=== PATIENT | male | born 1945 | race Caucasian/White ===

== ENCOUNTER 2017-03-13 12:40 | Inpatient (IN) | payer MEDICARE, OTHER ==
[~2017-03-13] VITALS: Ht 182.9 cm; Wt 147.7 kg
--- NOTE | ~2017-03-13 | PR ---
[place], [place] PROGRESS NOTE NAME: FRANCESCO BEY [facility] #: [id number] UNIT #: [id number] ROOM: 531 DOCTOR: INGA LAW DPM BIRTHDATE: [birth year] DOS: 03/15/2017 SUBJECTIVE: The patient was seen for followup of ulceration of the left heel, which apparently has been evident for 3-4 weeks. OBJECTIVE: Pedal pulses nonpalpable. Chronic venous insufficiency. Venous stasis, bilateral lower extremities. Capillary refill time decreased. Decreased epicritic sensations. Plantar posterior left heel reveals ulceration, approximately 3 cm in diameter with fibrous tissue. No deep sinus tract. No signs of abscess. No exposed bone noted. Results of the radiographs suggestive of osteomyelitis of the plantar posterior left heel. Patient's lower extremity arterial exam reveals severe multilevel disease inflow stenosis, superficial femoral, popliteal occlusion, poor reconstituted tibial flow. ASSESSMENT: Diabetic ulceration, left heel, probable osteomyelitis, severe peripheral vascular disease. PLAN: Evaluation and management discussed with the patient. He needs vascular intervention as soon as possible to allow for increased chances of wound healing and limb salvage discussed with the patient. He has an MRI pending on Friday to rule out osteomyelitis, but we will try and determine who his current vascular surgeon is and the patient may need transfer for vascular intervention to be able to heal the chronic wound. INGA LAW DPM CM:RONNI [id number] INGA LAW DPM 03/16/177 interface
--- NOTE | ~2017-03-13 | CON ---
[place], [place] REPORT OF CONSULTATION NAME: FRANCESCO BEY UNIT #: [id number] ROOM: 531 DOCTOR: VOLODYMYR SINGHSUNIL BIRTHDATE: [birth year] DOS: 03/14/2017 SUBJECTIVE: This patient is seen as consulted for evaluation and treatment of chronic left heel ulcer. The patient states it has only been there 3-4 weeks. He is diabetic. He has a history of chronic lower extremity swelling as well for many years. PAST MEDICAL HISTORY: Positive for AFib, BPH, chronic anemia, chronic renal insufficiency, congestive heart failure, dyslipidemia, gastroesophageal reflux disease, history of CVA, hypertension, history of DVT, hypothyroidism, severe protein malnutrition, type 2 diabetes with hyperglycemia and long-term use of insulin. ALLERGIES: PENICILLIN AND SIMVASTATIN. MEDICATIONS: Zaroxolyn, Prilosec, Humulin, Pravachol, gabapentin, vitamin D, Proscar, Colace, Cardizem, Pradaxa, Ultram, Flomax, Cordarone, Restoril. OBJECTIVE: Upon lower extremity physical examination, DP and PT pedal pulses are decreased. Chronic pigment changes noted bilaterally with dependent edema bilaterally. Negative Homans sign bilaterally at this time. CFT is 2 seconds to all digits. Sensation appears decreased in the feet bilaterally with no paresthesias. The plantar posterior portion of the left heel has an ulceration present measuring about 3 cm in diameter. There is slough and fibrous tissue noted throughout the wound. No bone is visible or palpable at this time. There is no purulent drainage or malodor. Minimal surrounding edema, no erythema or increased temperature, no signs of infection or abscess. Possible chronic osteomyelitis because the wound appears very chronic in nature. IMAGING: His x-ray was questionable for osteomyelitis of the plantar posterior left heel. ASSESSMENT: Diabetes mellitus, chronic left heel ulcer, possible osteomyelitis. PLAN: Consult is performed. Dressing was applied to the wound. I have ordered arterial vascular studies to evaluate for underlying PAD. Order MRI for further evaluation for possible osteomyelitis of the heel. If positive, consult Infectious Disease for IV antibiotics, but we will see what the MRI shows first. Reevaluate tomorrow here in the hospital. Thank you for the opportunity to take part in the care of this patient. [place], [place] REPORT OF CONSULTATION NAME: FRANCESCO BEY UNIT #: [id number] ROOM: 531 DOCTOR: SUNIL HELM DPM BIRTHDATE: [birth year] SUNIL HELM DPM CM:CONSTR:REPORT OF CONSULTATION 1157 03/15/17 0233 interface
[~2017-03-13 12:40] MED LIST: AMIODARONE200 MG PO; ASPIRIN81 M1 PO; ASPIRIN81 MG PO; AVODART0.5 MG PO; BYETTA10 MCG/0.0 IJ; BYETTA10 MCG/0.0 SC; BYETTA5MCG SC; CARDIZEM90 MG PO; CENTRUM SILVER1 CTB PO; CENTRUM1 TA1 PO; COUMADIN5 M2 PO; COUMADIN7.5 M1 PO; CYCLOBENZAPRINE5 MG PO; DEMADEX20 M1 PO; DILTIAZEM60 MG PO; FINASTERIDE5 MG PO; FLEXERIL10 MG PO; FLOMAX0.4 MG PO; GLUCAGEN1 MG IJ; HUMALOG 751 UNIT/0.0 SC; HYDROCODONE BIT1 T11 PO; JANUMET 1000 MG1 TAB PO; JANUVIA25 MG PO; Janumet 1000 MG1 TAB PO; KLOR-CON M2020 ME1 PO; KLOR-CON M2020 MEQ PO; LASIX40 MG PO; LEVOXYL50 MCG PO; LIPITOR40 MG PO; LISINOPRIL20 MG PO; LISINOPRIL40 MG PO; LOVASTATIN40 MG PO; LOVENOX100 MG/1 M SC; LOVENOX100 MG/ML SC; LOVENOX120 MG/0.8 SC; MAG-OX 400400 MG PO; METFORMIN500 MG PO; METOLAZONE5 MG PO; METOPROLOL SR50 MG PO; METOPROLOL50 MG PO; MIRTAZAPINE15 MG PO; MIRTAZAPINE7.5 MG PO; NAPROSYN500 MG PO; NEXIUM40 MG PO; NITROFURANTOIN100 M3 PO; NOVOLIN R100 U/ML SC; NOVOLOG 70/30 M10 ML SC; NOVOLOG FLEX100 U/ML SC; NOVOLOG1 UNIT/0.0; Nizoral 2%15 GM T; PACERONE200 MG PO; PERCOCET 325 MG1 TA3 PO; PRAD75 PO; PRADAXA150 MG PO; PRAVACHOL40 MG PO; PRILOSEC20 M1 PO; PRINIVIL40 MG PO; PROSCAR5 M1 PO; REGLAN10 M1 PO; REMERON PO; SPIRONOLACTONE1 TA1 PO; SPIRONOLACTONE1 TAB PO; SYNTHROID25 MCG PO; TORSEMIDE100 MG PO; UBIQUINOL; UBIQUINOL PO; UBIQUINOL100 MG PO; UBIQUINOL50 MG PO; VITAMIN D32000 UNI1 PO; WELCHOL3.75 GM/Pa PO; ZOFRAN4 MG PO; [UNRECOGNIZED DRUG - OTHER] SC
[2017-03-13 12:50] VITALS: BP 141/96
[2017-03-13 13:45] LABS: BASO % 0.4 % (0.0-1.0); EOS # 0.2 10*3/uL (0.0-0.4); EOS % 3.2 % (1.0-4.0); HEMATOCRIT 30.7 % (42.0-52.0); HEMOGLOBIN 9.6 g/dl (14.0-18.0); LYMPH # 0.8 10*3/uL (1.3-4.4); LYMPH % 10.6 % (27.0-41.0); MEAN CELL VOLUME 91.1 fl (80.0-94.0); MEAN CORPUSCULAR HGB 28.5 pg (27.0-31.0); MEAN CORPUSCULAR HGB CONC 31.3 g/dl (33.0-37.0); MEAN PLATELET VOLUME 9.9 fl (9.6-12.3); MONO # 0.7 10*3/uL (0.1-1.0); MONO % 9.7 % (3.0-9.0); NEUT # 5.4 10*3/uL (2.3-7.9); NEUT % 75.7 % (47.0-73.0); PLATELET COUNT AUTOMATED 214 10*3/uL (130-400); RED BLOOD COUNT 3.37 10*6/uL (4.50-5.90); RED CELL DISTRI WIDTH 15.4 % (0-14.5); WHITE BLOOD COUNT 7.1 10*3/uL (4.8-10.8)
[2017-03-13 13:56] LABS: BILIRUBIN NEGATIVE (NEGATIVE); BLOOD NEGATIVE (NEGATIVE); CLARITY CLEAR (CLEAR); COLOR YELLOW (YELLOW); GLUCOSE NEGATIVE (NEGATIVE); KETONE NEGATIVE (NEGATIVE); LEUKO ESTERASE TRACE (NEGATIVE); NITRITE NEGATIVE (NEGATIVE); PH 5.5 (5.0-9.0); PROTEIN NEGATIVE (NEGATIVE); UROBILINOGEN 0.2 E.U./dl (0.2-1.0)
[2017-03-13 14:05] LABS: BACTERIA TRACE; RBC 0-2 rbc/hpf (0-2); URINE REFLEX COMMENT YES (NO)
[2017-03-13 14:05] LABS: BUN 43 mg/dl (7-24); CARBON DIOXIDE 30 mmol/L (21-32); CHLORIDE 105 mmol/L (98-107); EST GLOM FILT AFRICAN AMERICAN 34 ml/min; GLUCOSE 67 mg/dL (65-99); POTASSIUM 4.2 mmol/L (3.5-5.1); SODIUM 144 mmol/L (136-145)
[2017-03-13 14:17] LABS: TROPONIN I < 0.015 ng/ml (<0.045)
[2017-03-13] MEDS ORDERED: MAGOX 400400 MG PO (15:17)
[2017-03-13] MEDS ORDERED: BACTRIM DS 8001 TA1 PO (15:19)
[2017-03-13] MEDS ORDERED: TRAMADOL HCL50 MG PO (15:20)
[2017-03-13] MEDS ORDERED: COLACE100 MG PO (15:22)
[2017-03-13] MEDS ORDERED: NEURONTIN300 MG PO (15:26)
[2017-03-13] MEDS ORDERED: LASIX20 MG PO (15:28)
[2017-03-13] MEDS ORDERED: COQ-10100 MG PO (15:29)
[2017-03-13 15:54] VITALS: BP 138/88
[2017-03-13 16:35] VITALS: BP 138/88
[2017-03-13] MEDS ORDERED: SANTYL250 U/GM T (17:02)
[2017-03-13 20:00] VITALS: BP 150/70
[2017-03-14] VITALS: BP 164/60
[2017-03-14 06:58] LABS: BASO % 0.3 % (0.0-1.0); EOS # 0.2 10*3/uL (0.0-0.4); EOS % 3.2 % (1.0-4.0); HEMATOCRIT 31.6 % (42.0-52.0); LYMPH # 0.6 10*3/uL (1.3-4.4); LYMPH % 9.5 % (27.0-41.0); MEAN CELL VOLUME 88.8 fl (80.0-94.0); MEAN CORPUSCULAR HGB 28.1 pg (27.0-31.0); MEAN CORPUSCULAR HGB CONC 31.6 g/dl (33.0-37.0); MEAN PLATELET VOLUME 9.8 fl (9.6-12.3); MONO # 0.6 10*3/uL (0.1-1.0); MONO % 10.6 % (3.0-9.0); NEUT # 4.5 10*3/uL (2.3-7.9); NEUT % 76.1 % (47.0-73.0); PLATELET COUNT AUTOMATED 197 10*3/uL (130-400); RED BLOOD COUNT 3.56 10*6/uL (4.50-5.90); RED CELL DISTRI WIDTH 15.1 % (0-14.5)
[2017-03-14 07:31] LABS: INTERNATIONAL NORM RATIO 1.2 (2.0-3.5); PROTHROMBIN TIME 13.2 SECONDS (9.0-12.4)
[2017-03-14 07:32] LABS: MAGNESIUM 2.2 mg/dL (1.5-2.1)
[2017-03-14 07:43] LABS: FREE T4 1.3 ng/dl (0.76-1.46); THYROID STIM HORMONE (HS) 1.27 uIU/ml (0.358-4.75)
[2017-03-14 08:00] VITALS: BP 174/80
[2017-03-14 09:35] LABS: VITAMIN D, 25-HYDROXY 57.9 ng/mL (30-100)
[2017-03-14 09:39] LABS: FOLIC ACID > 24.00 ng/mL (>5.38)
[2017-03-14 12:00] VITALS: BP 168/52
[2017-03-14 16:00] VITALS: BP 166/56
[2017-03-14 20:00] VITALS: BP 150/56
[2017-03-15] VITALS: BP 160/56
[2017-03-15 07:14] LABS: ALBUMIN 2.7 gm/dl (3.1-4.5); C-REACTIVE PROTEIN 6.42 MG/DL (0-0.3); MAGNESIUM 2.3 mg/dL (1.5-2.1); PHOSPHOROUS 2.4 mg/dL (2.5-4.9); POTASSIUM 4.3 mmol/L (3.5-5.1)
[2017-03-15 08:00] VITALS: BP 168/54
[2017-03-15 12:00] VITALS: BP 144/48
== END 2017-03-15 13:55 | disposition short-term general hospital (02) | DRG 637 ==
LOC: ED 12:40 → 5E 15:07 → EDHOLD 15:07 → 5E 15:24
PROVIDERS: Emergency Medicine; Internal Medicine Hospice and Palliative Medicine; Podiatrist
DX: E11.69 Type 2 diabetes mellitus with other specified complication (principal); E43 Unspecified severe protein-calorie malnutrition; M86.9 Osteomyelitis, unspecified; N17.0 Acute kidney failure with tubular necrosis; G93.40 Encephalopathy, unspecified; I74.8 Embolism and thrombosis of other arteries; E11.622 Type 2 diabetes mellitus with other skin ulcer; I13.0 Hypertensive heart and chronic kidney disease with heart failure and stage 1 through stage 4 chronic kidney disease, or unspecified chronic kidney disease; I50.42 Chronic combined systolic (congestive) and diastolic (congestive) heart failure; I48.0 Paroxysmal atrial fibrillation; E11.22 Type 2 diabetes mellitus with diabetic chronic kidney disease; Z68.41 Body mass index [BMI] 40.0-44.9, adult; E86.0 Dehydration; E11.51 Type 2 diabetes mellitus with diabetic peripheral angiopathy without gangrene; N18.3 Chronic kidney disease, stage 3 (moderate); N40.1 Benign prostatic hyperplasia with lower urinary tract symptoms; E78.5 Hyperlipidemia, unspecified; D53.9 Nutritional anemia, unspecified; B96.5 Pseudomonas (aeruginosa) (mallei) (pseudomallei) as the cause of diseases classified elsewhere; E11.65 Type 2 diabetes mellitus with hyperglycemia; K21.9 Gastro-esophageal reflux disease without esophagitis; E03.9 Hypothyroidism, unspecified; Z86.73 Personal history of transient ischemic attack (TIA), and cerebral infarction without residual deficits; Z86.718 Personal history of other venous thrombosis and embolism; Z82.3 Family history of stroke; Z82.0 Family history of epilepsy and other diseases of the nervous system; Z88.0 Allergy status to penicillin; Z88.8 Allergy status to other drugs, medicaments and biological substances; Z79.82 Long term (current) use of aspirin; Z79.4 Long term (current) use of insulin; Z79.899 Other long term (current) drug therapy

== ENCOUNTER → 2017-04-01 | Outpatient (CLI) | payer MEDICARE, OTHER ==
[~2017-04-01] MED LIST changes: +BACTRIM DS 8001 TA1 PO; +COLACE100 MG PO; +COQ-10100 MG PO; +LASIX20 MG PO; +MAGOX 400400 MG PO; +NEURONTIN300 MG PO; +SANTYL250 U/GM T; +TRAMADOL HCL50 MG PO
== END | disposition home or self-care (01) ==
LOC: MRI 03-25 08:00
DX: E11.621 Type 2 diabetes mellitus with foot ulcer (principal); M86.8X7 Other osteomyelitis, ankle and foot

== ENCOUNTER 2017-06-11 19:14 | Emergency (ER) | payer MEDICARE, OTHER ==
[~2017-06-11] VITALS: Ht 187.9 cm; Wt 154.2 kg
== END 2017-06-11 22:08 | disposition home or self-care (01) ==
LOC: ED 19:14
DX: M25.512 Pain in left shoulder (principal); M54.9 Dorsalgia, unspecified; Z88.0 Allergy status to penicillin; Z88.8 Allergy status to other drugs, medicaments and biological substances; Z79.899 Other long term (current) drug therapy; Z79.82 Long term (current) use of aspirin; W05.0XXA Fall from non-moving wheelchair, initial encounter; Y93.89 Activity, other specified; Y92.129 Unspecified place in nursing home as the place of occurrence of the external cause; Y99.8 Other external cause status

== ENCOUNTER 2017-07-02 17:07 | Inpatient (IN) | payer MEDICARE, OTHER ==
[~2017-07-02] VITALS: Ht 182.8 cm; Wt 142.7 kg
--- NOTE | ~2017-07-02 | PR ---
[place], [place] PROGRESS NOTE NAME: [facility]CO BEY [facility] #: [id number] UNIT #: [id number] ROOM: 409 DOCTOR: VOLODYMYR SINGHSUNIL BIRTHDATE: [birth year] DOS: 07/04/2017 SUBJECTIVE: This patient is seen for followup of chronic left heel ulcer. The patient's is in the room as well as the resident from Infectious Disease. According to the , the patient has had this wound at least for 4-5 months. She states it has gotten slowly better. Apparently, according to his , he did see Dr. Romero in the past and as recent as a month ago. He had an arteriogram done at [place] and Dr. Romero did not see any signs of any occlusions at that time. OBJECTIVE: EXTREMITIES: DP and PT pedal pulses are diminished. There is chronic lower extremity edema noted with pigment changes. Negative Homans sign is seen. Absent hair growth. Skin temperature is cool at the toes. The plantar posterior left heel wound does have some macerated and fibrous tissue with no surrounding fluctuance, erythema or increased temperature. There is some mild malodor noted at the wound. No bone is visible or palpable at this time. It is somewhat close to periosteum. No signs of abscess at this time. DIAGNOSTIC STUDIES: His x-ray showed probable osteomyelitis of the heel. His venous Dopplers were negative for DVT. His arterial Doppler showed mild right lower extremity inflow disease with severe left lower extremity disease. There is total occlusion of the distal right SFA without reconstruction of the right popliteal artery, total occlusion of the left SFA without reconstitution of the left popliteal artery, minimal flow is identified within the right anterior tibial and posterior tibial arteries as well as the left anterior tibial arteries. ASSESSMENT: Chronic left heel ulcer, history of osteomyelitis with most likely chronic osteomyelitis of the left heel, peripheral arterial disease. PLAN: Evaluation and management. I discussed with the patient's as well as the resident for Infectious Disease that at this time I would recommend conservative management. I would recommend wet to dry dressings for short period of time to clean the wound up and then possibly restart the wound VAC. Infectious Disease is going to put him on IV antibiotics. He has already had a PICC line placed. They will manage his IV antibiotics. We will offload the heel with heel protector while in bed and he has a Cam walker when he is out of bed. I would not recommend any surgical intervention at this time. We will consult Dr. Romero for evaluation just for followup since apparently he has seen him before and he is okay for discharge from our standpoint [facility] with [facility], which would include wet to dry dressing changes every day and he would have IV antibiotics managed by Infectious Disease. The would like to follow him up at the prison and not brought into the office because it is very taxing on the patient. I will let her Outreach Department know for our practice to follow him up at [facility] next week for reevaluation of the wound. [place], [place] PROGRESS NOTE NAME: FRANCESCO BEY UNIT #: [id number] ROOM: [facility] DOCTOR: SUNIL HELM DPM BIRTHDATE: [birth year] SUNIL HELM DPM CM:PNTRANS [id number] SUNIL HELM DPM 07/07/17 0717 interface
--- NOTE | ~2017-07-02 | CON ---
[place], [place] REPORT OF CONSULTATION NAME: [facility]CO [facility]Y [facility] [id number] UNIT #: [id number] ROOM: 409 DO[facility]: [facility] BIRTH[facility]: [birth year] DOS: HISTORY OF PRESENT ILLNESS: The patient apparently allergic to PENICILLIN and SIMVASTATIN and the patient markedly obese individual came in with infection, ID is following, need antibiotic for 2 weeks. The patient has wound, chronic on the left heel, significant and deep and chronic changes in both lower extremities and the peripheral artery study shows ____ disease on the left side than the right and total occlusion of the superficial femoral on both sides and pulse posterior tibial and dorsalis option on the left side, very feeble posterior tibial on the right side. The patient is afebrile. Blood pressure 146/41 and the pulse ox is 94. Diminished breath sounds on both sides. Heart, S1, S2 regular, obese. Abdomen is pendulous and marked peripheral edema. Hemoglobin 9.9 and electrolytes are unremarkable and creatinine is elevated at 1.49 and GFR is 46. He appears to have a chronic kidney disease, probably stage 4. Chest x-ray PICC line is in place. No acute changes noted. No focal neurological deficit noted. The patient is from [facility] and the patient has a chronic atrial fibrillation, benign prostatic hypertrophy and chronic anemia, chronic renal insufficiency, history of congestive heart failure and history of peripheral edema, chronic, history of CVA, history of deep vein thrombosis, hypothyroidism and protein-calorie malnutrition, type diabetes mellitus with hypoglycemia. The patient has left L4 surgery in the past, rhinoplasty and tonsillectomy. SOCIAL HISTORY: No smoking, apparently has exposure to smoke from the others. FAMILY HISTORY: History of CVA in the family. ALLERGIES: THE PATIENT IS ALLERGIC IS PENICILLIN AND SIMVASTATIN. PHYSICAL EXAMINATION: Vital signs are stable. Peripheral edema noted, obese individual, and posterior tibial is feeble on the right side, unable to feel about the dorsalis pedis or posterior tibial, could not feel on the left side, big heel wound noted. Chronic changes on the both lower extremities and severe peripheral arterial disease. The patient is for wound VAC. I talked to the patient and the patient to undergo aortobifemoral angiogram with distal runoff and possible revascularization, left side, both inlet and outlet vessels and then subsequently to undergo revascularization on the right side also to reduce the risk of further problem with the skin and the wounds on the right side eventually. I will discuss the case with Dr. John Dover and I will make the arrangements appropriately at [place] for further management for revascularization. We will try to do endovascular. [place], [place] REPORT OF CONSULTATION NAME: FRANCESCO BEY UNIT #: [id number] ROOM: [facility] DOCTOR: PRAFUL [facility] BIRTHDATE: [birth year] KWAKU BASILIO MD CM:CONSTR:REPORT OF CONSULTATION 1847 07/05/17 1352 estrellita HOLT DO
--- NOTE | ~2017-07-02 | CON ---
[place], [place] REPORT OF CONSULTATION NAME: FRANCESCO BEY [facility] #: [id number] UNIT #: [id number] ROOM: 409 DOCTOR: THANH SINGHINGA Harvey BIRTHDATE: [birth year] DOS: 07/03/2017 SUBJECTIVE: The patient presents as a 71-year-old male who has been treated by Dr. Hercules and Dr. Garcia at the office on outpatient basis. The patient has had a chronic ulceration to the left heel. It has been treated with a wound VAC and the patient was at [facility]. The patient was seen at the office yesterday where the heel was debrided and apparently, the patient was dizzy and had a fall in the restroom and subsequently admitted. PAST MEDICAL HISTORY: Chronic atrial fibrillation, benign prostatic hyperplasia, chronic anemia, chronic renal insufficiency, CHF, dyslipidemia, GERD, CVA, hypertension, history of DVT, hypothyroid, severe protein-calorie malnutrition, type 2 diabetes with hyperglycemia. PAST SURGICAL HISTORY: Permanent, left elbow surgery; rhinoplasty; tonsillectomy. SOCIAL HISTORY: History of secondhand smoke exposure. Social drinker. Denies illicit drug use or current tobacco use. FAMILY HISTORY: Father of a cerebral infarction. Mother of Alzheimer's disease. ALLERGIES: PENICILLIN AND SIMVASTATIN. PHYSICAL EXAMINATION: Lower extremity examination: Pedal pulses diminished. There is edema, bilateral lower extremity; venous insufficiency. There is an ulceration to the plantar aspect of the left heel, which is full thickness through subcutaneous tissue level. There is scant amount of serous drainage and odor to the wound noted. The ulceration is approximately 4.5 cm in diameter. ASSESSMENT: Diabetic ulceration, plantar left heel, PVD ____ and ordered wound VAC to be applied after the patient is seen by Dr. Ha from Infectious Disease. The wound VAC will be continuous at 125 mmHg, change every 3 days. I spoke with Dr. Ha regarding the case after consulting with Dr. Garcia, the patient's previous treatment history. Wet to dry will be applied until the patient is seen by Infectious Disease and ordered for the culture. Additionally, radiographs 3 views of the left foot will be taken to ascertain if any erosion of the heel noted, also right foot arterial venous Dopplers bilateral. We will discuss the case with Dr. Chang and will follow the patient tomorrow. [place], [place] REPORT OF CONSULTATION NAME: FRANCESCO BEY UNIT #: [id number] ROOM: 409 DOCTOR: INGA LAW DPM BIRTHDATE: [birth year] INGA LAW DPM CM:CONSTR:REPORT OF CONSULTATION 1220 07/04/17 1307 interface
[2017-07-02 17:07] VITALS: BP 177/68
[2017-07-02 17:54] LABS: BASO % 0.3 % (0.0-1.0); EOS % 0.3 % (1.0-4.0); HEMATOCRIT 35.8 % (42.0-52.0); LYMPH # 0.4 10*3/uL (1.3-4.4); LYMPH % 5.7 % (27.0-41.0); MEAN CELL VOLUME 89.1 fl (80.0-94.0); MEAN CORPUSCULAR HGB 27.4 pg (27.0-31.0); MEAN CORPUSCULAR HGB CONC 30.7 g/dl (33.0-37.0); MEAN PLATELET VOLUME 10.1 fl (9.6-12.3); MONO # 0.8 10*3/uL (0.1-1.0); NEUT # 5.7 10*3/uL (2.3-7.9); PLATELET COUNT AUTOMATED 227 10*3/uL (130-400); RED BLOOD COUNT 4.02 10*6/uL (4.50-5.90); RED CELL DISTRI WIDTH 15.1 % (0-14.5)
[2017-07-02 18:11] LABS: ALBUMIN 2.9 gm/dl (3.1-4.5); ALKALINE PHOSPHATASE 96 U/L (45-117); BUN 33 mg/dl (7-24); CHLORIDE 101 mmol/L (98-107); CREATININE 2.01 mg/dL (0.70-1.30); MAGNESIUM 2.2 mg/dL (1.5-2.1); POTASSIUM 4.5 mmol/L (3.5-5.1); SGOT/AST 18 IU/L (3-35); SGPT/ALT 13 U/L (12-78); SODIUM 139 mmol/L (136-145); TOTAL PROTEIN 7.6 gm/dL (6.4-8.2)
[2017-07-02 18:12] LABS: TROPONIN I < 0.015 ng/ml (<0.045)
[2017-07-02 18:33] LABS: ACT PARTIAL THROMBO TIME 32.5 SECONDS (20.8-31.5); INTERNATIONAL NORM RATIO 1.3 (2.0-3.5)
[2017-07-02 18:44] LABS: BILIRUBIN NEGATIVE (NEGATIVE); BLOOD 2+ (NEGATIVE); CLARITY CLOUDY (CLEAR); COLOR YELLOW (YELLOW); GLUCOSE NEGATIVE (NEGATIVE); KETONE NEGATIVE (NEGATIVE); LEUKO ESTERASE 3+ (NEGATIVE); NITRITE POSITIVE (NEGATIVE); PH 5.5 (5.0-9.0); UROBILINOGEN 0.2 E.U./dl (0.2-1.0)
[2017-07-02 18:50] LABS: BACTERIA 1+; RBC 16-20 rbc/hpf (0-2); WBC TNTC wbc/hpf (0-5)
[2017-07-02 18:55] LABS: VENOUS BLOOD GAS O2 SAT 51.5 % (40-85); VENOUS PH 7.372 (7.32-7.43)
[2017-07-02 19:18] VITALS: BP 180/92
[2017-07-02 20:44] VITALS: BP 148/58
[2017-07-02 21:20] VITALS: BP 136/72
--- NOTE | 2017-07-02 21:20 | NUR ---
[facility] 71, admitted to , under the services of ROXY Peacock DO with a diagnosis of UTI AND METABOLIC ENCEPHALOPATHY. Chief complaint is WEAKNESS, CONFUSION, SOB. Patient arrived via ambulatory from ER. Monitor applied. Initial assessment completed. Vital signs taken and recorded. ROXY PEACOCK DO notified of admission to the unit. Orders received. See assessment for past medical history, medications and allergies. Patient and/or family oriented to unit. [facility]. Clothing/patient valuable form completed. SHAKIR MCLEAN
[2017-07-02] MEDS ORDERED: CYMBALTA30 MG PO (21:22)
[2017-07-02] MEDS ORDERED: ZOSTRIX HP56.6 GM T (21:24)
[2017-07-02] MEDS ORDERED: MILK OF MA400 MG/5 M PO (21:40)
[2017-07-02] MEDS ORDERED: TOPCARE LAXATIVE5 MG PO (21:41)
--- NOTE | 2017-07-02 21:46 | NUR ---
MED REC UP TO DATE WITH PT MED LIST FROM [facility]
--- NOTE | 2017-07-02 22:04 | NUR ---
SPOKE WITH ALVERTO LANGFORD, PATIENTS SISTER AT THIS TIME. SHE WAS WITH PATIENT AT ESTIMATOR AND DRAFTER OFFICE. PER EDGARD SHE IS DOES NOT WANT THE DRESSING TO PATIENTS LEFT FOOT CHANGED OR MESSED WITH UNTIL WE SPEAK WITH SOMEONE AT DR. LAW'S OFFICE THEY HAVE BEEN TREATING THIS PATIETNS ULCERS FOR A LONG TIME NOW AND SHE IS NOT SURE WHAT TREATMENT THAT THEY WOULD WANT, ALSO STATES THAT PATIENT EVEN HAD A WOULD VAC AT [facility].
--- NOTE | 2017-07-02 22:27 | NUR ---
SPOKE TO DR. HURLEY IN REGARDS TO PT. SISTER REQUESTING CONSULT FOR LEFT FOOT WOUND. ALSO INFORMED DR. HURLEY THAT THE [facility] IS UP TO DATE.
[2017-07-03] VITALS: BP 145/60
[2017-07-03 03:11] LABS: BASO % 0.2 % (0.0-1.0); EOS % 0.4 % (1.0-4.0); HEMATOCRIT 33.7 % (42.0-52.0); HEMOGLOBIN 10.5 g/dl (14.0-18.0); LYMPH # 0.5 10*3/uL (1.3-4.4); LYMPH % 10.8 % (27.0-41.0); MEAN CELL VOLUME 87.8 fl (80.0-94.0); MEAN CORPUSCULAR HGB 27.3 pg (27.0-31.0); MEAN CORPUSCULAR HGB CONC 31.2 g/dl (33.0-37.0); MEAN PLATELET VOLUME 9.9 fl (9.6-12.3); MONO # 0.6 10*3/uL (0.1-1.0); NEUT # 3.7 10*3/uL (2.3-7.9); NEUT % 74.8 % (47.0-73.0); PLATELET COUNT AUTOMATED 210 10*3/uL (130-400); RED BLOOD COUNT 3.84 10*6/uL (4.50-5.90); RED CELL DISTRI WIDTH 15.4 % (0-14.5); WHITE BLOOD COUNT 4.9 10*3/uL (4.8-10.8)
[2017-07-03 03:27] LABS: ALBUMIN 2.6 gm/dl (3.1-4.5); CREATININE 1.84 mg/dL (0.70-1.30); MAGNESIUM 2.2 mg/dL (1.5-2.1); PHOSPHOROUS 2.9 mg/dL (2.5-4.9)
--- NOTE | 2017-07-03 05:30 | NUR ---
NO WOUND CARE ORDERS OBTAINED ON ADMISSION DUE TO FAMILY REQUEST THAT WE DO NOT UNDRESS THE WOUND BUT INSTEAD CONSULT PODIETRY. OVERNIGHT PATIENT URINATED A LARGE VOLUME IN BED AND BOTH DRESSINGS BECAME SATURATED. DR HURLEY WAS CALLED TO NOTIFY AND REQUEST AUTH TO APPLY A DRY GAUZE DRESSING UNTIL PT COULD BE SEEN BY PODIETRY. WOUND WAS MEASURED AND PHOTOGRAPHED. AUTHORIZATION TO PHOTOGRAPH OBTAINED BY PATIENT. A DRY GAUZE DRESSING WAS APPLIED. UNFORTUNATELY THE PHOTO DID NOT SAVE. IDENTIFICATION OFFICER WAS INFORMED OF THIS.
[2017-07-03 08:00] VITALS: BP 136/84; BP 98/52
--- NOTE | 2017-07-03 08:08 | NUR ---
'S OFFICE CALLED AT THIS TIME REGARDING CONSULT. AWAITING RETURN PHONE CALL.
--- NOTE | 2017-07-03 09:28 | NUR ---
IN TO SEE PATIENT.
--- NOTE | 2017-07-03 09:29 | NUR ---
PATIENT BLADDER SCANNED AT THIS TIME PER . GREATEST AMOUNT OF URINE RETAINED WAS 111ML. PATIENT WAS INCONTINENT FOR LARGE AMOUNT OF URINE PRIOR TO BLADDER SCAN. WILL CONTINUE TO MONITOR. PATIENT REMAINS CONFUSED. CALL LIGHT WITHIN REACH. BED ALARM MAINTAINED FOR SAFETY.
[2017-07-03 12:00] VITALS: BP 151/74
--- NOTE | 2017-07-03 12:00 | NUR ---
IN TO SEE PATIENT REGARDING CONSULT. NEW ORDERS TO BE ENTERED PER . CHEMICAL EQUIPMENT REPAIRER MARIE NOTIFIED AT THIS TIME REGARDING WOUND VAC TO BE APPLIED. CRYSTAL FROM WOUND CARE ON FLOOR AND IN TO ASSESS THE PATIENT'S WOUND AT THIS TIME.
--- NOTE | 2017-07-03 12:26 | NUR ---
'S OFFICE CALLED AT THIS TIME REGARDING CONSULT.
--- NOTE | 2017-07-03 12:29 | NUR ---
WOUND CULTURE OBTAINED FROM LEFT HEEL PER ORDER AND SENT TO LAB. WET TO DRY DRESSING APPLIED BY TEQUILA MELENDEZ PER ORDER.
--- NOTE | 2017-07-03 13:31 | NUR ---
PATIENT OFF FLOOR VIA CART FOR SCHEDULED TESTS.
--- NOTE | 2017-07-03 14:29 | NUR ---
PATIENT RETURNED TO FLOOR AT THIS TIME.
--- NOTE | 2017-07-03 15:30 | NUR ---
FRANCESCO BEY [id number] Please refer to the physician's history and physical for past medical history, comorbid conditions, and allergies. Diagnosis: UTI METABOLIC ENCEPHALOPATHY Marcus Score: 12,HIGH RISK WOUND DESCRIPTIONS: Location of the wound: left heel Thickness: Full Size: 4.5cm x 3.5cm x 0.8cm Tunneling: none Undermining: none Sinus Tract: none Presence of Exudate: serosanguineous Amount: Moderate Color: Yellow, red, Odor: Foul Periwound Skin Appearance: Erythema Wound edges: approximated Pain (associated with wound): none at time of assessment How does patient state this happened? pt unable to state how this happened. Dr. Dover stated this patient was folowing with his office and has had wound vac placed at [place]. He suggested that we order the vac here after ID sees the patient and culture the wound. He order other testing as well. Surface the patient is resting on: Isoflex SKIN PREVENTION RECOMMENDATION: 1. Pressure redistribution support surface as appropriate 2. Elevate heels 3. Remove boots/TEDS every shift and reapply 4. Head of bed 30 degrees as tolerated 5. Assess nutrition and hydration 6. Manage moisture 7. Avoid the use of containment devices while in bed 8. Use absorptive products on surfaces limit layers of linens on bed 9. Turn and reposition every 1-2 hours in bed and every 1 hour in chair as tolerated 10. Weight shifts every 15 minutes while up in chair 11. Offloading with pillows or device to keep heels elevated off bed 12. Monitor skin at least every shift 13. Inspect under medical devices twice a day WOUND TREATMENT RECOMMENDATIONS: Consult ID. Consult podiatry. Consult Dr. Laureano for possible HBO if patient is a candiate.
--- NOTE | 2017-07-03 15:46 | NUR ---
WAITING FOR TO ASSESS PATIENT'S HEEL BEFORE WOUND VAC IS APPLIED PER ORDER.
[2017-07-03 16:00] VITALS: BP 154/60
--- NOTE | 2017-07-03 16:22 | NUR ---
IN TO SEE PATIENT AT THIS TIME.
--- NOTE | 2017-07-03 16:28 | NUR ---
SPOKE WITH REGARDING CONSULT AND IS NOT RECOMMENDING WOUND VAC TO BE APPLIED AT THIS TIME. WET TO DRY DRESSING WILL BE APPLIED PER ORDER.
--- NOTE | 2017-07-03 16:52 | NUR ---
DRY DRESSING APPLIED PER ORDER. LEFT HEEL ELEVATED AT THIS TIME. WILL CONTINUE TO MONITOR.
[2017-07-03 20:00] VITALS: BP 154/71
--- NOTE | 2017-07-03 20:00 | NUR ---
AWAKE & ALERT LYING IN BED. SKIN WARM & DRY. 02 INTACT AT 2LPM VIA NASAL CANNULA. LUNGS CLEAR WITH NO COUGH NOTED. LOWER EXTREMITY EDEMA NOTED; LEFT HEEL ELEVATED. PT. VOICES NO C/O AT THIS TIME. CALL LIGHT WITHIN REACH.
--- NOTE | 2017-07-03 22:00 | NUR ---
BLOOD SUGAR 183; 2 UNITS OF COVERAGE GIVEN.
[2017-07-04] VITALS: BP 155/48
[2017-07-04 06:10] LABS: BASO % 0.3 % (0.0-1.0); EOS # 0.1 10*3/uL (0.0-0.4); EOS % 1.8 % (1.0-4.0); HEMATOCRIT 31.9 % (42.0-52.0); HEMOGLOBIN 9.9 g/dl (14.0-18.0); LYMPH # 0.6 10*3/uL (1.3-4.4); LYMPH % 15.8 % (27.0-41.0); MEAN CELL VOLUME 88.1 fl (80.0-94.0); MEAN CORPUSCULAR HGB 27.3 pg (27.0-31.0); MEAN PLATELET VOLUME 10.3 fl (9.6-12.3); MONO # 0.5 10*3/uL (0.1-1.0); NEUT # 2.5 10*3/uL (2.3-7.9); NEUT % 66.5 % (47.0-73.0); PLATELET COUNT AUTOMATED 199 10*3/uL (130-400); RED BLOOD COUNT 3.62 10*6/uL (4.50-5.90); RED CELL DISTRI WIDTH 15.2 % (0-14.5); WHITE BLOOD COUNT 3.8 10*3/uL (4.8-10.8)
[2017-07-04 06:14] LABS: CREATININE 1.49 mg/dL (0.70-1.30)
[2017-07-04 08:00] VITALS: BP 157/57
--- NOTE | 2017-07-04 11:07 | NUR ---
Patient is terminal manager care at [facility] and is a bed hold. Patient can return when medically stable.
[2017-07-04 12:00] VITALS: BP 150/62
--- NOTE | 2017-07-04 15:27 | NUR ---
DR. BASILIO NOTIFIED OF CONSULT.
[2017-07-04 16:00] VITALS: BP 146/41
--- NOTE | 2017-07-04 16:30 | NUR ---
PT REFUSED SLIDING SCALE COVERAGE AND STATES I CANNOT USE HIS PICC LINE. I EXPLAINED TO HIM THAT IT WAS IN PROPER POSITION AND COULD NOW BE USED AND HE STATED "YOU CANT USE IT IF I SAY YOU CANT."
--- NOTE | 2017-07-04 18:32 | NUR ---
IV ANTIBIOTIC START TIME CHANGED TO 1999 DUE TO PATIENT BEING UNCOOPERATIVE AT PRESENT. DR. BASILIO TO SEE PATIENT THIS EVENING.
--- NOTE | 2017-07-04 18:47 | NUR ---
DR BASILIO IN TO SEE PATIENT AND WILL TRANSFER ON FRIDAY FOR FURTHER TREATMENT FOR BLE OCCLUSIONS TO [facility].
--- NOTE | 2017-07-04 18:50 | NUR ---
DRESSING CHANGED PER ORDER FROM DR. HELM.
[2017-07-04 20:00] VITALS: BP 154/53
--- NOTE | 2017-07-04 22:30 | NUR ---
PT AT THIS TIME HAD A 6 BEAT RUN OF VTACH FOLLOWED BY FREQUENT PVC'S WHILE GETTING BATHED. PATIENT WAS IN TRENDELENBERG POSITIONING. ASYMPTOMATIC. NO COMPLAINTS. RHYTHM IMMEDIATELY WENT BACK NSR. DR. LANCASTER NOTIFIED. NO NEW ORDERS RECIEVED
--- NOTE | 2017-07-04 23:12 | NUR ---
24 HR chart check completed.
--- NOTE | 2017-07-04 23:32 | NUR ---
[facility] BRUSHING MACHINE OPERATOR CALLED IN AND STATED THAT EVERYTHING WAS SET UP FOR THE PATIENT TO BE GOING TO THE BRUSHING MACHINE OPERATOR ON FRIDAY. THEY STATED THAT THEY WOULD BE IN CONTACT WITH THE HOSPITAL BETWEEN NOW AND FRIDAY PERTAINING TO THE PATIENTS TRANSFER AND THAT AFTER GOING TO THE BRUSHING MACHINE OPERATOR, THE PATIENT WILL BE ADMITTED TO [facility]
[2017-07-05] VITALS: BP 160/59
[2017-07-05 07:21] LABS: BASO % 0.4 % (0.0-1.0); EOS # 0.2 10*3/uL (0.0-0.4); EOS % 3.4 % (1.0-4.0); HEMATOCRIT 29.8 % (42.0-52.0); HEMOGLOBIN 9.4 g/dl (14.0-18.0); LYMPH # 0.9 10*3/uL (1.3-4.4); LYMPH % 16.7 % (27.0-41.0); MEAN CELL VOLUME 88.7 fl (80.0-94.0); MEAN CORPUSCULAR HGB CONC 31.5 g/dl (33.0-37.0); MEAN PLATELET VOLUME 9.3 fl (9.6-12.3); MONO # 0.9 10*3/uL (0.1-1.0); MONO % 16.7 % (3.0-9.0); NEUT # 3.4 10*3/uL (2.3-7.9); NEUT % 61.5 % (47.0-73.0); PLATELET COUNT AUTOMATED 175 10*3/uL (130-400); RED BLOOD COUNT 3.36 10*6/uL (4.50-5.90); RED CELL DISTRI WIDTH 15.1 % (0-14.5); WHITE BLOOD COUNT 5.5 10*3/uL (4.8-10.8)
[2017-07-05 07:46] LABS: ALBUMIN 2.2 gm/dl (3.1-4.5); CREATININE 1.42 mg/dL (0.70-1.30); POTASSIUM 4.1 mmol/L (3.5-5.1); TOTAL PROTEIN 6.1 gm/dL (6.4-8.2)
[2017-07-05 08:00] VITALS: BP 164/54
[2017-07-05 12:00] VITALS: BP 159/57
[2017-07-05] MEDS ORDERED: MERREM IV1 GM IV (12:59)
--- NOTE | 2017-07-05 13:52 | NUR ---
SPOKE TO DR BASILIO PER DR GUTIERREZ REGARDING DISCHARGE ORDERS. PT TO BE NPO FRIDAY AFTER MIDNIGHT AND TRANSFER TO [facility] [facility] Friday FOR SCHEDULED PROCEDURE AT 0630. DR GUTIERREZ INFORMED.
--- NOTE | 2017-07-05 13:58 | NUR ---
PATIENT REFUSED DISCHARGE PHOTOS AT THIS TIME.
--- NOTE | 2017-07-05 14:52 | NUR ---
REPORT CALLED TO SUYAPA AT [facility]
--- NOTE | 2017-07-05 15:44 | NUR ---
Discharge instructions reviewed with patient/family. Patient receptive and verbalizes understanding. Follow-up care arranged. Written instructions given to patient/family. Pt left via [facility].
== END 2017-07-05 15:44 | disposition other institution (70) | DRG 70 ==
LOC: ED 17:07 → EDHOLD 20:19 → 4E 20:19
PROVIDERS: Emergency Medicine; Family Medicine; Internal Medicine Hospice and Palliative Medicine; Registered Nurse; ADMIT Internal Medicine
PROC: 02HV33Z Insertion of Infusion Device into Superior Vena Cava, Percutaneous Approach (ICD-10-PCS; principal; 2017-07-04)
DX: G93.41 Metabolic encephalopathy (principal); E43 Unspecified severe protein-calorie malnutrition; E11.51 Type 2 diabetes mellitus with diabetic peripheral angiopathy without gangrene; I48.0 Paroxysmal atrial fibrillation; I50.22 Chronic systolic (congestive) heart failure; I13.0 Hypertensive heart and chronic kidney disease with heart failure and stage 1 through stage 4 chronic kidney disease, or unspecified chronic kidney disease; F03.90 Unspecified dementia, unspecified severity, without behavioral disturbance, psychotic disturbance, mood disturbance, and anxiety; Z68.41 Body mass index [BMI] 40.0-44.9, adult; L03.116 Cellulitis of left lower limb; L97.429 Non-pressure chronic ulcer of left heel and midfoot with unspecified severity; M86.8X8 Other osteomyelitis, other site; N39.0 Urinary tract infection, site not specified; E11.69 Type 2 diabetes mellitus with other specified complication; L97.529 Non-pressure chronic ulcer of other part of left foot with unspecified severity; E11.621 Type 2 diabetes mellitus with foot ulcer; L97.519 Non-pressure chronic ulcer of other part of right foot with unspecified severity; E86.0 Dehydration; E78.5 Hyperlipidemia, unspecified; N40.1 Benign prostatic hyperplasia with lower urinary tract symptoms; R39.11 Hesitancy of micturition; K21.9 Gastro-esophageal reflux disease without esophagitis; E03.9 Hypothyroidism, unspecified; Z77.22 Contact with and (suspected) exposure to environmental tobacco smoke (acute) (chronic); B96.1 Klebsiella pneumoniae [K. pneumoniae] as the cause of diseases classified elsewhere; N18.3 Chronic kidney disease, stage 3 (moderate); E11.65 Type 2 diabetes mellitus with hyperglycemia; I25.10 Atherosclerotic heart disease of native coronary artery without angina pectoris; B96.4 Proteus (mirabilis) (morganii) as the cause of diseases classified elsewhere; E66.9 Obesity, unspecified; D64.9 Anemia, unspecified; Z79.4 Long term (current) use of insulin; Z86.718 Personal history of other venous thrombosis and embolism; Z86.73 Personal history of transient ischemic attack (TIA), and cerebral infarction without residual deficits; Z88.0 Allergy status to penicillin; Z88.8 Allergy status to other drugs, medicaments and biological substances; Z79.82 Long term (current) use of aspirin; Z79.899 Other long term (current) drug therapy; Z82.3 Family history of stroke; Z82.0 Family history of epilepsy and other diseases of the nervous system; Z83.3 Family history of diabetes mellitus; Z82.49 Family history of ischemic heart disease and other diseases of the circulatory system

== ENCOUNTER 2017-10-30 11:57 | Inpatient (IN) | payer MEDICARE, OTHER ==
[~2017-10-30] VITALS: Ht 182.8 cm; Wt 149.4 kg
--- NOTE | ~2017-10-30 | CON ---
[place], [place] REPORT OF CONSULTATION [id number] #: [id number] ROOM: 529 DO[facility] BIRTH[facility]: [birth year] DOS: 10/31/2017 CARDIOLOGY CONSULTATION The patient is a 71-year-old male with wounds to both his feet. Dr. Dover is taking care of wounds along with his associate. The patient came from the [facility]. Case discussed with Dr. Dover and requested him for the aortobifemoral angiogram and intervention to improve the flow through the lower extremities and improve the wound healing. I have taken care of the patient in the past and I discussed at length with the spouse also. The patient has diminished pulses, noted edema, and volume overload also is considered and the patient ____ on diuresis and reduced breathing that may also improve and also ____ in healing process along with revascularization. Subsequently, the patient was found to have fever and found to have bacteremia, was started on broad spectrum antibiotics. We will wait until the completing the antibiotic therapy and repeat the cultures and if the repeat cultures are negative with antibiotics, then we may pursue angiogram but subsequently the patient developed flash pulmonary edema with troponin elevation and underlying extensive coronary artery disease also was one of the considerations, and now the patient is stabilized, we may do the Lexiscan with Cardiolite and if it is abnormal we may do the coronary arteriography and possible revascularization. The patient had optimal medications at this time. The patient has a previous history of anticoagulation, benign prostatic hyperplasia, congestive heart failure, flash pulmonary edema, and severe hypertension, hypertensive cardiovascular disease, hypothyroidism, severe peripheral edema, and possible protein deficiency, volume overload, type 2 diabetes mellitus, and severe peripheral artery disease with wound indicating Hitchcock classification 5. The patient also has chronic kidney disease. The patient is being transferred to [facility] for further management of volume overload, severe renal and pulmonary edema, also with severe coronary artery disease, possible [id number] myocardial infarction, and risk of renal insufficiency, and bacteremia and the patient was gradually continued to improve and I will do the echocardiogram also along with Lexiscan and we will follow the patient closely and I will forward the results to Dr. Dover and also to Dr. Posey. KWAKU BASILIO MD CM:CONSTR:REPORT OF CONSULTATION 1625 10/31/17 2251 interface CHRISTIAN Bailey DP
[~2017-10-30 11:57] MED LIST changes: +CYMBALTA30 MG PO; +MERREM IV1 GM IV; +MILK OF MA400 MG/5 M PO; +TOPCARE LAXATIVE5 MG PO; +ZOSTRIX HP56.6 GM T
[2017-10-30 12:20] VITALS: BP 205/64
[2017-10-30 12:51] LABS: BASO % 0.2 % (0.0-1.0); EOS % 0.4 % (1.0-4.0); HEMOGLOBIN 9.6 g/dl (14.0-18.0); LYMPH # 0.4 10*3/uL (1.3-4.4); LYMPH % 4.8 % (27.0-41.0); MEAN CELL VOLUME 81.6 fl (80.0-94.0); MEAN CORPUSCULAR HGB 25.3 pg (27.0-31.0); MEAN PLATELET VOLUME 10.4 fl (9.6-12.3); MONO # 0.5 10*3/uL (0.1-1.0); MONO % 6.3 % (3.0-9.0); NEUT # 7.1 10*3/uL (2.3-7.9); NEUT % 87.8 % (47.0-73.0); PLATELET COUNT AUTOMATED 215 10*3/uL (130-400); RED CELL DISTRI WIDTH 16.9 % (0-14.5); WHITE BLOOD COUNT 8.1 10*3/uL (4.8-10.8)
[2017-10-30 13:06] LABS: ALBUMIN 2.7 gm/dl (3.1-4.5); CREATININE 1.92 mg/dL (0.70-1.30); POTASSIUM 4.2 mmol/L (3.5-5.1); TOTAL PROTEIN 7.4 gm/dL (6.4-8.2)
[2017-10-30 13:12] LABS: TROPONIN I 0.141 ng/ml (<0.045)
[2017-10-30 14:40] VITALS: BP 178/86; BP 188/97
[2017-10-30 15:20] VITALS: BP 178/86
[2017-10-30 16:14] VITALS: BP 127/42
[2017-10-30] MEDS ORDERED: REGLAN5 MG PO (17:36)
[2017-10-30] MEDS ORDERED: NYSTOP60 GM T (17:38)
[2017-10-30] MEDS ORDERED: LANTUS SOL100 UNIT/1 SQ (17:40)
[2017-10-30] MEDS ORDERED: TRAD5TAB1 PO (17:41)
[2017-10-30] MEDS ORDERED: Ventolin 02.5 MG/3 M INH (17:43)
[2017-10-30] MEDS ORDERED: GOOD NEIGHBOR650 MG PO (17:44)
[2017-10-30] MEDS ORDERED: PLAVIX75 M1 PO (17:49)
[2017-10-30] MEDS ORDERED: GLUCAGON HCL1 MG IJ (17:56)
[2017-10-30 19:44] LABS: CKMB 0.7 ng/ml (0.5-3.6)
[2017-10-30 20:00] VITALS: BP 173/58
[2017-10-31] VITALS: BP 174/55
[2017-10-31 02:45] VITALS: BP 146/53
== END 2017-10-31 05:12 | disposition short-term general hospital (02) | DRG 871 ==
LOC: ED 11:57 → EDHOLD 14:50 → 5E 14:50
PROVIDERS: Internal Medicine; Nurse Practitioner Family
DX: A41.9 Sepsis, unspecified organism (principal); G93.41 Metabolic encephalopathy; E43 Unspecified severe protein-calorie malnutrition; I48.0 Paroxysmal atrial fibrillation; E11.621 Type 2 diabetes mellitus with foot ulcer; E11.65 Type 2 diabetes mellitus with hyperglycemia; I13.0 Hypertensive heart and chronic kidney disease with heart failure and stage 1 through stage 4 chronic kidney disease, or unspecified chronic kidney disease; I50.42 Chronic combined systolic (congestive) and diastolic (congestive) heart failure; L03.115 Cellulitis of right lower limb; Z68.41 Body mass index [BMI] 40.0-44.9, adult; L97.518 Non-pressure chronic ulcer of other part of right foot with other specified severity; L97.429 Non-pressure chronic ulcer of left heel and midfoot with unspecified severity; K21.9 Gastro-esophageal reflux disease without esophagitis; N40.0 Benign prostatic hyperplasia without lower urinary tract symptoms; E03.9 Hypothyroidism, unspecified; E78.5 Hyperlipidemia, unspecified; N18.9 Chronic kidney disease, unspecified; D64.9 Anemia, unspecified; Z88.0 Allergy status to penicillin; Z88.8 Allergy status to other drugs, medicaments and biological substances; Z79.82 Long term (current) use of aspirin; Z79.4 Long term (current) use of insulin; Z79.899 Other long term (current) drug therapy; Z86.718 Personal history of other venous thrombosis and embolism; Z98.49 Cataract extraction status, unspecified eye; Z82.3 Family history of stroke; Z81.8 Family history of other mental and behavioral disorders; Z83.3 Family history of diabetes mellitus; Z82.49 Family history of ischemic heart disease and other diseases of the circulatory system; Z86.73 Personal history of transient ischemic attack (TIA), and cerebral infarction without residual deficits; I87.2 Venous insufficiency (chronic) (peripheral)

== ENCOUNTER 2017-11-27 12:02 | Inpatient (IN) | payer MEDICARE, OTHER ==
[2017-11-27] VITALS (10 sets, daily range): BP systolic 88–142; BP diastolic 40–71
[~2017-11-27] VITALS: Ht 182.8 cm; Wt 127.5 kg
--- NOTE | ~2017-11-27 | PR ---
[place], [place] PROGRESS NOTE [id number] UN[facility] #: [id number] ROOM: 426 DOCTOR: INGA LAW DPM BIRTHDATE: [birth year] DOS: 11/29/2017 SUBJECTIVE: The patient presents postop surgical intervention of the right foot, performed by Dr. Hercules, an ulceration to the left heel. OBJECTIVE: The right lower extremity has a bivalved cast on. Capillary refill time is normal to all digits. No strike through bleeding or apparent complication. Plantar left heel has ulceration which is full thickness, granular. No signs of purulent drainage or foul odor. No signs of abscess. ASSESSMENT: Postop right foot diabetic ulceration, plantar left heel. PLAN: Evaluation and management. The bivalved cast will be kept intact per Dr. Hercules's ordered, continue Bactroban dressings to the left heel daily and we will reassess the patient if he is still in house tomorrow or Friday. INGA LAW DPM CM:RONNI 0819 [id number] INGA LAW DPM 11/29/17 1016 interface
--- NOTE | ~2017-11-27 | EKG ---
[place], [place] ELECTROCARDIOGRAM REPORT NAME: FRANCESCO BEY UNIT #: [id number] ROOM: 426 DOCTOR: PRAFUL CHOI [facility] BIRTHDATE: [birth year] DOS: 11/27/2017 TRACING TIME: 13:40. CONCLUSION: 1. Sinus bradycardia. 2. First degree AV block. 3. ____ poor R-wave progression in the precordial leads. 4. Low voltage in limb leads. 5. Nonspecific ST changes. KWAKU BASILIO MD CM:EKGRPT:ELECTROCARDIOGRAM REPORT [id number] KWAKU BASILIO MD [facility]
--- NOTE | ~2017-11-27 | CON ---
[place], [place] REPORT OF CONSULTATION NAME: FRANCESCO BEY UNIT #: [id number] ROOM: 426 DOCTOR: VOLODYMYR SINGHSUNIL BIRTHDATE: [birth year] DOS: 11/28/2017 SUBJECTIVE: This 71-year-old white male is seen and is consulted for evaluation of both feet. The patient had surgery by Dr. Hercules 2 days ago on the right foot. He has a bivalve cast on at this time. The patient states he feels okay. He was admitted because of hypoglycemia as well as pneumonia. PAST MEDICAL HISTORY: Positive for chronic AFib, BPH, CHF, chronic diabetic foot ulcer, gastroesophageal reflux disease, history of CVA, hypertension, hypothyroidism, type 2 diabetes with hyperglycemia. ALLERGIES: PENICILLIN AND SIMVASTATIN. CURRENT MEDICATIONS: Include Levaquin, Maxipime, insulin, Restoril, Zofran, morphine. PHYSICAL EXAMINATION: Upon lower extremity physical examination, the right lower extremity below the knee has a bivalve cast on. CFT is less than 2 seconds to the digits. He could flex and extend his digits. There is no bleeding or strike through the cast or bandage on the right side. This was put on 2 days ago. Left plantar heel has a small open area that is full thickness, is clean and granular with no edema, erythema, no purulent drainage or malodor, no signs of infection. Some dry skin noted on the sides of the ankle. Again, no signs of infection of the left lower extremity. Neurologic status is diminished. Arterial status is mildly decreased. ASSESSMENT: Status post surgery, right lower extremity with bivalve cast in place; diabetic ulcer, plantar left heel noninfected and diabetes mellitus with diabetic neuropathy. PLAN: Consult is performed. I will let Dr. Hercules know that he was admitted and discussed with him what to do at the right lower extremity. I believe he wants the cast to remain on at this time. Orders put in for Bactroban and dry dressing for the left heel ulcer daily. Offload the areas. We will continue to monitor while in the hospital and he will follow up with Dr. Hercules upon discharge. Thank you for the opportunity to take part in care of this patient. [place], [place] REPORT OF CONSULTATION NAME: MAIDACLEMENTEFRANCESCO W UNIT #: [id number] ROOM: 426 DOCTOR: SUNIL HELM DPM BIRTHDATE: [birth year] SUNIL HELM DPM CM:CONSTR:REPORT OF CONSULTATION 0812 11/28/17 1026 interface
--- NOTE | ~2017-11-27 | PR ---
[place], [place] PROGRESS NOTE NAME: FRANCESCO BEY [facility] #: [id number] UNIT #: [id number] ROOM: 426 DOCTOR: INGA LAW DPM BIRTHDATE: [birth year] DOS: 12/02/2017 SUBJECTIVE: The patient was seen for followup of left heel ulceration and right lower extremity surgical intervention. OBJECTIVE: The bivalved cast intact to right lower extremity. Capillary fill time normal to the digits of the right foot. No strike through bleeding or apparent complication. Left heel ulceration is granular, free of infection or abscess. ASSESSMENT: Diabetic ulceration, left heel, left lower extremity, status post surgery. PLAN: Evaluation and management. The bivalved cast to be kept intact per Dr. Hercules's orders. Continue local wound care, left heel and reappoint for followup. INGA LAW DPM CM:PNTRANS 1253 45 INGA LAW DPM 12/02/172044 interface
--- NOTE | ~2017-11-27 | PR ---
[place], [place] PROGRESS NOTE NAME: [facility] [id number] UNIT #: [id number] ROOM: 426 DOCTOR: SUNIL HELM DPM BIRTHDATE: [birth year] DOS: 12/01/2017 SUBJECTIVE: The patient is seen for followup of left heel ulcer. He is also status post surgery on the right lower extremity with a cast in place. He is 5 days postop. He does admit to some pain in the left heel where the wound is. No other complaints. OBJECTIVE: EXTREMITIES: The bivalved cast is intact to right lower extremity. Positive flexion, extension to the digits. CFT is less than 2 seconds to the digits. No bleeding or strike through the cast or bandage. Left heel wound is clean. It is full thickness with no signs of infection. It is granular. No drainage or malodor. Some dry skin noted in the mediolateral heel. ASSESSMENT: Diabetic ulcer, left heel, ____ left, status post surgery, right lower extremity. PLAN: Evaluation and management, leave bivalve cast intact on the right lower extremity, continue with wound care to the left heel, okay to apply lotion to the dry skin on the left heel, continue to offload and see the patient back for followup tomorrow for reevaluation. SUNIL HELM DPM CM:PNTRANS 1151 1235 SUNIL HELM DPM 12/01/17 1234 interface
--- NOTE | ~2017-11-27 | CON ---
[place], [place] REPORT OF CONSULTATION NAME: FRANCESCO BEY UNIT #: [id number] ROOM: 426 DOCTOR: VINNIE ARREOLA MD BIRTHDATE: [birth year] DOS: 12/01/2017 CHIEF COMPLAINT: The patient was nonverbal. HISTORY OF PRESENT ILLNESS: This is a 71-year-old male, resident of [facility], who was admitted due to altered mental status. The patient had had surgery on his left foot for diabetic foot ulcer. After that his blood sugar dipped to 30 and he became increasingly confused. He was admitted to the medical floor because of this altered mental status and since then has been very much labile, episodically refusing care and medications. He has even been physically aggressive at times. PAST MEDICAL HISTORY: Remarkable for bradycardia, pneumonia, anemia, obesity, vitamin D deficiency, severe protein calorie malnutrition and UTI. MENTAL STATUS: My mental status was limited due to the patient's lack of cooperation. When I called his name, he clearly looked at me, was about to mouth words and then looked away. I attempted to engage him on multiple occasions and all he would do is make eye contact, but did not verbalize anything. DIAGNOSIS: Acute delirium. PLAN: At this point, I will suggest some lab work that can be done to rule out further organic issues. If he is an ongoing behavioral problem for you and you medically clear him, I would consider taking him to the [facility]. VINNIE ARREOLA MD CM:CONSTR:REPORT OF CONSULTATION 1023 12/01/17 1035 interface
[~2017-11-27 12:02] MED LIST changes: -CARDIZEM90 MG PO; +DILTIAZEM HCL90 MG PO; +GLUCAGON HCL1 MG IJ; +GOOD NEIGHBOR650 MG PO; +LANTUS SOL100 UNIT/1 SQ; +NYSTOP60 GM T; +PLAVIX75 M1 PO; +REGLAN5 MG PO; +TRAD5TAB1 PO; +Ventolin 02.5 MG/3 M INH
[2017-11-27 12:59] LABS: BILIRUBIN NEGATIVE (NEGATIVE); BLOOD 3+ (NEGATIVE); CLARITY CLOUDY (CLEAR); COLOR YELLOW (YELLOW); GLUCOSE NEGATIVE (NEGATIVE); KETONE TRACE (NEGATIVE); LEUKO ESTERASE 1+ (NEGATIVE); NITRITE NEGATIVE (NEGATIVE); PH 5.5 (5.0-9.0); UROBILINOGEN 0.2 E.U./dl (0.2-1.0)
[2017-11-27 13:00] LABS: ABG BASE EXCESS 9.1 mmol/L (-2.0-2.0); ABG HCO3 35.7 mmol/l (22-26); ABG O2 SATURATION 98.4 % (95-97); ARTERIAL BLOOD GAS PCO2 63.4 mmHg (35-45); ARTERIAL BLOOD GAS PH 7.367 (7.35-7.45)
[2017-11-27 13:08] LABS: BASO % 0.2 % (0.0-1.0); EOS # 0.1 10*3/uL (0.0-0.4); EOS % 0.5 % (1.0-4.0); HEMATOCRIT 30.1 % (42.0-52.0); HEMOGLOBIN 9.3 g/dl (14.0-18.0); LYMPH # 0.5 10*3/uL (1.3-4.4); LYMPH % 4.5 % (27.0-41.0); MEAN CELL VOLUME 84.8 fl (80.0-94.0); MEAN CORPUSCULAR HGB 26.2 pg (27.0-31.0); MEAN CORPUSCULAR HGB CONC 30.9 g/dl (33.0-37.0); MEAN PLATELET VOLUME 10.1 fl (9.6-12.3); MONO # 0.9 10*3/uL (0.1-1.0); MONO % 8.8 % (3.0-9.0); NEUT % 85.4 % (47.0-73.0); PLATELET COUNT AUTOMATED 212 10*3/uL (130-400); RED BLOOD COUNT 3.55 10*6/uL (4.50-5.90); RED CELL DISTRI WIDTH 19.4 % (0-14.5); WHITE BLOOD COUNT 10.5 10*3/uL (4.8-10.8)
[2017-11-27 13:11] LABS: WBC TNTC wbc/hpf (0-5)
[2017-11-27 13:12] LABS: RBC TNTC rbc/hpf (0-2); YEAST 2+
[2017-11-27] MEDS ORDERED: BUMETANIDE0.5 MG PO (13:12)
[2017-11-27] MEDS ORDERED: CARVEDILOL6.25 MG PO (13:13)
[2017-11-27] MEDS ORDERED: CUBICIN500 MG IV (13:16)
[2017-11-27] MEDS ORDERED: CYMBALTA60 MG PO (13:20)
[2017-11-27] MEDS ORDERED: FLORASTOR250 MG PO (13:21)
[2017-11-27] MEDS ORDERED: FEROSUL325 MG PO (13:22)
[2017-11-27 13:23] LABS: ALBUMIN 2.9 gm/dl (3.1-4.5); CREATININE 1.47 mg/dL (0.70-1.30); POTASSIUM 3.6 mmol/L (3.5-5.1)
[2017-11-27] MEDS ORDERED: HUMALOG100 UNIT/2 SC (13:25)
[2017-11-27] MEDS ORDERED: Hydralazine Hyd25 MG PO (13:27)
[2017-11-27] MEDS ORDERED: HUMALOG 751 UNIT/0.0 SC (13:27)
[2017-11-27] MEDS ORDERED: TRAMADOL HCL50 MG PO (13:33)
[2017-11-27] MEDS ORDERED: MERREM IV1 GM IV (13:37)
[2017-11-28] VITALS: BP 150/55
[2017-11-28 07:38] LABS: BASO % 0.4 % (0.0-1.0); EOS # 0.3 10*3/uL (0.0-0.4); EOS % 4.6 % (1.0-4.0); HEMATOCRIT 28.6 % (42.0-52.0); HEMOGLOBIN 8.7 g/dl (14.0-18.0); LYMPH # 0.7 10*3/uL (1.3-4.4); MEAN CELL VOLUME 87.7 fl (80.0-94.0); MEAN CORPUSCULAR HGB 26.7 pg (27.0-31.0); MEAN CORPUSCULAR HGB CONC 30.4 g/dl (33.0-37.0); MEAN PLATELET VOLUME 10.7 fl (9.6-12.3); MONO # 0.7 10*3/uL (0.1-1.0); MONO % 12.6 % (3.0-9.0); NEUT # 3.9 10*3/uL (2.3-7.9); PLATELET COUNT AUTOMATED 177 10*3/uL (130-400); RED BLOOD COUNT 3.26 10*6/uL (4.50-5.90); RED CELL DISTRI WIDTH 19.5 % (0-14.5); WHITE BLOOD COUNT 5.5 10*3/uL (4.8-10.8)
[2017-11-28 08:00] VITALS: BP 144/40
[2017-11-28 08:03] LABS: ALBUMIN 2.7 gm/dl (3.1-4.5); BUN 30 mg/dl (7-24); CHLORIDE 105 mmol/L (98-107); CREATININE 1.29 mg/dL (0.70-1.30); POTASSIUM 4.1 mmol/L (3.5-5.1); SGOT/AST 29 IU/L (3-35); SGPT/ALT 20 U/L (12-78); SODIUM 146 mmol/L (136-145)
[2017-11-28 08:10] LABS: ALKALINE PHOSPHATASE 76 U/L (45-117); FREE T4 0.97 ng/dl (0.76-1.46); PHOSPHOROUS 3.1 mg/dL (2.5-4.9)
[2017-11-28 10:26] LABS: VITAMIN D, 25-HYDROXY 27.4 ng/mL (30-100)
[2017-11-28 16:00] VITALS: BP 129/39
[2017-11-28 20:00] VITALS: BP 143/50
[2017-11-29] VITALS: BP 174/53
[2017-11-29 05:56] LABS: BUN 24 mg/dl (7-24); CHLORIDE 105 mmol/L (98-107); CREATININE 1.33 mg/dL (0.70-1.30); SODIUM 143 mmol/L (136-145)
[2017-11-29 06:07] LABS: HEMOGLOBIN 8.7 g/dl (14.0-18.0); MEAN CELL VOLUME 85.9 fl (80.0-94.0); MEAN CORPUSCULAR HGB 26.7 pg (27.0-31.0); MEAN CORPUSCULAR HGB CONC 31.1 g/dl (33.0-37.0); MEAN PLATELET VOLUME 10.7 fl (9.6-12.3); PLATELET COUNT AUTOMATED 179 10*3/uL (130-400); RED BLOOD COUNT 3.26 10*6/uL (4.50-5.90); RED CELL DISTRI WIDTH 19.3 % (0-14.5); WHITE BLOOD COUNT 5.5 10*3/uL (4.8-10.8)
[2017-11-29 06:09] LABS: VANCOMYCIN TROUGH 22.3 ug/mL (10-20)
[2017-11-29 06:40] LABS: BASOPHILS 1 % (0-1); PLATELET SUFFICIENCY NORMAL (NORMAL); TOTAL CELLS COUNTED 100 #CELLS
[2017-11-29 08:00] VITALS: BP 170/50
[2017-11-29 16:00] VITALS: BP 169/64
[2017-11-29 20:00] VITALS: BP 143/72
[2017-11-30] VITALS: BP 180/52
[2017-11-30 08:00] VITALS: BP 180/50
[2017-11-30 10:55] LABS: BUN 18 mg/dl (7-24); CHLORIDE 99 mmol/L (98-107); SODIUM 137 mmol/L (136-145)
[2017-11-30 10:56] LABS: BASO % 0.3 % (0.0-1.0); EOS # 0.3 10*3/uL (0.0-0.4); EOS % 4.3 % (1.0-4.0); HEMATOCRIT 28.6 % (42.0-52.0); HEMOGLOBIN 9.2 g/dl (14.0-18.0); LYMPH # 0.6 10*3/uL (1.3-4.4); LYMPH % 9.1 % (27.0-41.0); MEAN CELL VOLUME 82.2 fl (80.0-94.0); MEAN CORPUSCULAR HGB 26.4 pg (27.0-31.0); MEAN CORPUSCULAR HGB CONC 32.2 g/dl (33.0-37.0); MEAN PLATELET VOLUME 10.1 fl (9.6-12.3); MONO # 0.5 10*3/uL (0.1-1.0); MONO % 8.3 % (3.0-9.0); NEUT % 77.2 % (47.0-73.0); PLATELET COUNT AUTOMATED 197 10*3/uL (130-400); RED BLOOD COUNT 3.48 10*6/uL (4.50-5.90); RED CELL DISTRI WIDTH 18.6 % (0-14.5); WHITE BLOOD COUNT 6.5 10*3/uL (4.8-10.8)
[2017-11-30 11:00] LABS: POTASSIUM 3.7 mmol/L (3.5-5.1)
[2017-11-30 12:00] VITALS: BP 175/64
[2017-11-30] MEDS ORDERED: PLAVIX75 M1 PO (13:08)
[2017-11-30] MEDS ORDERED: PRADAXA150 MG PO (13:08)
[2017-11-30] MEDS ORDERED: ASPIRIN81 M1 PO (13:08)
[2017-11-30 16:00] VITALS: BP 133/79
[2017-11-30 20:00] VITALS: BP 141/72
[2017-12-01] VITALS: BP 190/66
[2017-12-01 02:45] VITALS: BP 190/68
[2017-12-01 06:00] VITALS: BP 190/66
[2017-12-01 06:51] LABS: BASO % 0.6 % (0.0-1.0); EOS # 0.2 10*3/uL (0.0-0.4); EOS % 4.2 % (1.0-4.0); HEMOGLOBIN 9.1 g/dl (14.0-18.0); LYMPH # 0.9 10*3/uL (1.3-4.4); LYMPH % 16.6 % (27.0-41.0); MEAN CELL VOLUME 81.9 fl (80.0-94.0); MEAN CORPUSCULAR HGB 26.6 pg (27.0-31.0); MEAN CORPUSCULAR HGB CONC 32.5 g/dl (33.0-37.0); MEAN PLATELET VOLUME 9.8 fl (9.6-12.3); MONO # 0.5 10*3/uL (0.1-1.0); NEUT # 3.5 10*3/uL (2.3-7.9); NEUT % 67.4 % (47.0-73.0); PLATELET COUNT AUTOMATED 190 10*3/uL (130-400); RED BLOOD COUNT 3.42 10*6/uL (4.50-5.90); RED CELL DISTRI WIDTH 18.8 % (0-14.5); WHITE BLOOD COUNT 5.2 10*3/uL (4.8-10.8)
[2017-12-01 07:13] LABS: BUN 15 mg/dl (7-24); CHLORIDE 99 mmol/L (98-107); CREATININE 1.07 mg/dL (0.70-1.30); POTASSIUM 3.3 mmol/L (3.5-5.1); SODIUM 138 mmol/L (136-145)
[2017-12-01 08:00] VITALS: BP 176/78
[2017-12-01 12:00] VITALS: BP 112/95
[2017-12-01] MEDS ORDERED: LEVAQUIN750 M1 PO (14:39)
[2017-12-01] MEDS ORDERED: FLUCONAZOLE100 MG PO (14:39)
[2017-12-01 16:00] VITALS: BP 168/72
[2017-12-02 08:00] VITALS: BP 168/73
[2017-12-02 11:54] LABS: BUN 15 mg/dl (7-24); CHLORIDE 101 mmol/L (98-107); CREATININE 1.15 mg/dL (0.70-1.30); POTASSIUM 3.9 mmol/L (3.5-5.1); SODIUM 138 mmol/L (136-145)
== END 2017-12-02 14:59 | DRG 871 ==
LOC: ED 12:02 → EDHOLD 15:39 → 4E 15:39
PROVIDERS: Emergency Medicine; Family Medicine; Internal Medicine
DX: A41.9 Sepsis, unspecified organism (principal); E43 Unspecified severe protein-calorie malnutrition; J15.6 Pneumonia due to other Gram-negative bacteria; G93.41 Metabolic encephalopathy; E87.0 Hyperosmolality and hypernatremia; E11.22 Type 2 diabetes mellitus with diabetic chronic kidney disease; E11.40 Type 2 diabetes mellitus with diabetic neuropathy, unspecified; L89.893 Pressure ulcer of other site, stage 3; I50.32 Chronic diastolic (congestive) heart failure; N39.0 Urinary tract infection, site not specified; I13.0 Hypertensive heart and chronic kidney disease with heart failure and stage 1 through stage 4 chronic kidney disease, or unspecified chronic kidney disease; I48.2 Chronic atrial fibrillation; N40.0 Benign prostatic hyperplasia without lower urinary tract symptoms; R65.20 Severe sepsis without septic shock; D64.9 Anemia, unspecified; E83.41 Hypermagnesemia; D72.810 Lymphocytopenia; N18.2 Chronic kidney disease, stage 2 (mild); E66.9 Obesity, unspecified; E03.9 Hypothyroidism, unspecified; L89.622 Pressure ulcer of left heel, stage 2; Z77.22 Contact with and (suspected) exposure to environmental tobacco smoke (acute) (chronic); K21.9 Gastro-esophageal reflux disease without esophagitis; Z88.1 Allergy status to other antibiotic agents; Z88.9 Allergy status to unspecified drugs, medicaments and biological substances; Z86.73 Personal history of transient ischemic attack (TIA), and cerebral infarction without residual deficits; Z86.718 Personal history of other venous thrombosis and embolism; Z79.4 Long term (current) use of insulin; Z82.3 Family history of stroke; Z82.0 Family history of epilepsy and other diseases of the nervous system; Z83.3 Family history of diabetes mellitus; Z82.49 Family history of ischemic heart disease and other diseases of the circulatory system; Z79.899 Other long term (current) drug therapy; Z68.38 Body mass index [BMI] 38.0-38.9, adult

== ENCOUNTER 2017-12-04 12:27 | Inpatient (IN) | payer MEDICARE, OTHER ==
[~2017-12-04] VITALS: Ht 182.8 cm; Wt 135.9 kg
[2017-12-04] VITALS (45 sets, daily range): BP systolic 40–163; BP diastolic 0–83
--- NOTE | ~2017-12-04 | PR ---
[place], [place] PROGRESS NOTE [id number] UNIT #: [id number] ROOM: 407 DOCTOR: SUNIL HELM DPM BIRTHDATE: [birth year] DOS: 12/08/2017 SUBJECTIVE: The patient is seen postop right foot. He is out of the ICU and on the fourth floor. He is resting comfortably at this time. OBJECTIVE: Neurovascular status is unchanged. K wires noted to second, third and fourth toe, right foot. The right second and third toes plantarly have some dry necrotic tissue. The fourth toe has some mild duskiness noted, but no necrotic tissue at this time. The wound at the plantar forefoot on the right side at the base of the great toe is essentially unchanged. There is no purulence, no malodor, no signs of abscess at this time, but again plantar surface of the right second and third toes is necrotic. ASSESSMENT: Post-surgery right foot, diabetic neuropathy, peripheral arterial disease. PLAN: Evaluation and management. I did remove the K-wires from the right second and third toe without any incident. There is a chance he may indeed lose his right second and third toes, but right now he is just recovering from an [place]. The areas are not infected. It is dry necrotic tissue. Continue with packing and dressing changes daily. I left the wire in the fourth toe. There is no significant necrosis at that toe at this time. Follow up tomorrow for reevaluation. SUNIL HELM DPM CM:PNTRANS 16 20 SUNIL HELM DPM 12/08/171918 interface
--- NOTE | ~2017-12-04 | PR ---
[place], [place] PROGRESS NOTE NAME: FRANCESCO BEY UNIT #: [id number] ROOM: [facility] DOCTOR: DOT ELIZABETH MD BIRTHDATE: [birth year] DOS: 12/06/2017 SUBJECTIVE: The patient was seen and examined. He remains critically ill. He is off pressors. He is awake and alert. Denies shortness of breath. His family is visiting. He is on nasal cannula and was eating lunch. PHYSICAL EXAMINATION: VITAL SIGNS: Temperature 98.7, pulse 80, respiratory rate 14, blood pressure 140/52. HEENT: Shows no JVD. LUNGS: Diminished breath sounds. No wheeze. HEART: Normal S1, S2. No rub, thrill or gallop. ABDOMEN: Soft, nontender. There is no organomegaly. EXTREMITIES: Had 1+ edema. SKIN: Showed no overt rash. LABORATORY DATA: Hemoglobin 8.8, white count of 10.0, platelets 182. Sodium 140, potassium 3.8, CO2 27, BUN 27, creatinine 2.26, glucose of 228, calcium 8.0, phosphorus 3.2, magnesium 1.8, albumin 2.3. ASSESSMENT AND PLAN: 1. Acute on chronic kidney disease. The patient appears to have baseline creatinine in the middle to upper ones range. He likely has an acute element related to prerenal factors with possible transition to acute tubular necrosis due to ischemia/sepsis prolonged prerenal state. The patient's creatinine level is fairly stable. Continue to monitor. Use diuretics as felt needed. Replace electrolytes as needed. Dose meds for current creatinine clearance. 2. Anemia. The patient has now had concerns for possible gastrointestinal bleeding. Transfuse as needed. Follow H and H. 3. Peripheral vascular disease/foot wound. Antibiotics with dose adjustment for his current creatinine clearance. 4. Hypertension. The patient's blood pressure is stable. Recently, he was hypotensive and required pressors. Pressors have been weaned off. 5. Diabetes mellitus. Stable. On insulin. [place], [place] PROGRESS NOTE NAME: FRANCESCO BEY UNIT #: [id number] ROOM: [facility] DOCTOR: DOT ELIZABETH MD BIRTHDATE: [birth year] DOT ELIZABETH MD CM:PNTRANS 1432 2210 DOT ELIZABETH MD 12/06/17 2209 interface
--- NOTE | ~2017-12-04 | CON ---
[place], [place] REPORT OF CONSULTATION NAME[id number] UNIT #: [id number] ROOM: 407 DOCTOR: KARL NICHOLAS,FEBRUARY BIRTHDATE: [birth year] DOS: 12/05/2017 HISTORY OF PRESENT ILLNESS: The patient is a 71-year-old male who was admitted from an area snf. He was there receiving IV antibiotics. I reviewed the old [place] chart. It appears he presented here on December 31 with gangrenous changes and infection of his right foot. He was transferred out according to the nurses to [place]. He had surgery per Dr. Hercules with Podiatry. He has been receiving IV daptomycin at the snf. He also was briefly hospitalized here again from November 28 to the and was diagnosed with UTI and pneumonia. His urine culture at that time had yeast. He has been receiving fluconazole. He was also discharged with 5 days of Levaquin for presumed pneumonia during that hospitalization and he has been receiving daptomycin. He was here November 28 to December 01. He was not followed by Infectious Disease. The patient is very confused, unable to give any history. He is admitted now with GI bleed and an NSTEMI. His cultures from his foot on the October 30 grew Proteus, on November 19 grew Pseudomonas, both his cultures were from his right foot. I cannot access [place] currently to review their records, so I will reach another hospital to review the records. ID is consulted for continued antibiotic management for his right foot osteomyelitis. PAST MEDICAL HISTORY: As above as well as AFib, BPH, CHF, GERD, CVA, hypertension, DVT, hypothyroidism, normocytic anemia, obesity, diabetes, vitamin D deficiency, elbow surgery, rhinoplasty, tonsillectomy. SOCIAL HISTORY: Nonsmoker, nondrinker. No illicit drug use. FAMILY MEDICAL HISTORY: Father from CVA. Mother had Alzheimer's disease. ALLERGIES: Include PENICILLINS and SIMVASTATIN. CURRENT MEDICATIONS: Include fluconazole, Cymbalta, vancomycin, Bactroban, Protonix, norepinephrine, Calazime, Dulcolax, Dalbo, Tylenol, dopamine. LABORATORY DATA: WBCs 13.3, platelets 220. WBCs were 16.4 on admission. BUN 24, creatinine 2.15. LFTs within normal limits. UA negative for nitrites, only trace leukocyte esterase, wbc's 21-30 per high powered field. Blood cultures negative. C. diff is negative. Right foot culture is pending. REVIEW OF SYSTEMS: Very limited. The patient is very confused and cannot give review of systems. He has ____ with liquid stool. He has PICC line in place. No rash or itch. Denies shortness of breath currently, does not seem to be in pain. He is fairly comfortable. Again, he is unable to really give any review of systems. No emesis per nursing. He has been afebrile. PHYSICAL EXAMINATION: VITAL SIGNS: Temperature 97.8, pulse 68, respirations 18, BP 116/40. GENERAL: Alert, confused 71-year-old male, in no acute distress. HEAD, EYES, EARS, NOSE AND THROAT: Normocephalic. No thrush. NECK: Supple. [place], [place] REPORT OF CONSULTATION NAME: FRANCESCO BEY UNIT #: [id number] ROOM: [facility] DOCTOR: KARL NICHOLASFEBRUARY BIRTHDATE: [birth year] LUNGS: Clear to auscultation bilaterally. Respirations even and unlabored. HEART: Regular rhythm. No murmur appreciated. ABDOMEN: Soft, obese, nontender. No masses. Left groin, he had got a small wound that is a few centimeters in depth. No odor or cellulitis. No purulence. EXTREMITIES: Right upper extremity, PICC in place, dressing dry and intact. No signs of phlebitis. Bilateral lower extremities, +2 edema. Right foot, he has ischemic changes, second and third toes. No odor or cellulitis. Small amount of bloody drainage from wound on the plantar portion at the second and third metatarsal head. There are some sutures in place. No cellulitis. No odor. No pus. Right foot, there are ___ to the second, third and fourth toes. SKIN: Otherwise warm, dry, free of rashes. ASSESSMENT: Right foot osteomyelitis. PLAN: Further review of [place] records will be done from an outside hospital where I can access [facility], continue the vancomycin and fluconazole for now. This hospital does not stock daptomycin, further antibiotic adjustments as per further workup. ADDENDUM After reviewing the chart, labs microbiology, I agree with the above plans as described. We will follow the patient up clinically and adjust accordingly. GREG BARAJAS CNP DONNA GELLER MD CM:CONSTR:REPORT OF CONSULTATION 1719 12/09/17 0603 interface
--- NOTE | ~2017-12-04 | PR ---
[place], [place] PROGRESS NOTE NAME: FRANCESCO BEY [facility] #: [id number] UNIT #: [id number] ROOM: [facility] DOCTOR: INGA LAW DPM BIRTHDATE: [birth year] DOS: 12/06/2017 SUBJECTIVE: The patient was seen for followup of postop right foot and followup of ulceration, left heel. OBJECTIVE FINDINGS: K wires are noted to the second, third and fourth toes. There is dusky appearance with necrotic changes to the plantar second and third right toes. The dorsal aspect of the toes appears normal still at this time. No purulent drainage or malodor noted. There is an ulcerative site at the lateral base of the right hallux that tracks proximally 3-4 cm and incision sites noted are well coapted to the lower right leg and plantar foot. No signs of purulent drainage or foul odor. No signs of abscess. Left heel has ulceration, which is full thickness, granular with no signs of infection. ASSESSMENT: Postop surgery, left heel diabetic ulceration; diabetic neuropathy; peripheral vascular disease. PLAN: Continue packing and dressing changes. I discussed the case with Dr. Chang and Dr. Hercules. The wires may be removed if continued changes to the toes are noted. The patient may indeed lose the second and third right toes, but again the patient is not a surgical candidate at this time due to the fact that he just had an [place]. We will continue to monitor the toes for changes and again possible removal of the K wires. At this time, we will watch closely for further changes and the patient will be seen Friday by Dr. Chang. INGA LAW DPM CM:PNJEFF 1112 1153 INGA LAW DPM 12/06/17 1152 interface
--- NOTE | ~2017-12-04 | PR ---
[place], [place] PROGRESS NOTE NAME[id number] UNIT #: [id number] ROOM: 419 DOCTOR: SUNIL HELM DPM BIRTHDATE: [birth year] DOS: 12/12/2017 SUBJECTIVE: This patient is seen for followup of dry gangrene necrosis of digits on the right foot. The patient is resting comfortably at this time. He is postop right foot. OBJECTIVE: Neurovascular status is unchanged. Plantar aspect second and third toe on the right foot still dry necrotic. Plantar ulceration appears necrotic as well. Fourth digit appears minimally dusky with no change, no necrotic tissue. Right great toe shows no necrosis, no purulent drainage is seen from the wound. Left heel is unchanged. ASSESSMENT: Peripheral vascular disease, postop surgery right foot, dry gangrene and ulceration, left heel. PLAN: Evaluation and management. Continue offloading and local care at this time. The patient is not doing well medically. He is having renal issues. We will continue with conservative treatment, daily dressing changes and continue with conservative measures due to patient's systemic condition. SUNIL HELM DPM CM:PNJEFF 1157 1255 SUNIL HELM DPM 12/13/17 0302 interface
--- NOTE | ~2017-12-04 | PR ---
[place], [place] PROGRESS NOTE NAME: FRANCESCO BEY [facility] #: [id number] UNIT #: [id number] ROOM: 407 DOCTOR: INGA LAW DPM BIRTHDATE: [birth year] DOS: 12/09/2017 SUBJECTIVE: The patient was seen for followup of postop right foot and ulceration, left heel. OBJECTIVE: Plantar aspect of the second and third right toe still dry necrotic tissue noted dorsal toes, though evident only mild dusky appearance noted to the fourth, still at this time with no necrotic changes still. The wound to the plantar forefoot reveals no signs of purulent drainage or foul odor. No return of abscess. Ulceration, left heel, unchanged from previous exam. ASSESSMENT: Peripheral vascular disease; postop surgery, right foot; ulceration, left heel. PLAN: Evaluation and management. Continue local wound care, bilateral. The patient will be seen for followup tomorrow. Discussed the case with the patient and his sister and Infectious Disease. We will continue to monitor the digits. The patient is not a surgical candidate at this time due to his current systemic condition, but we will continue to monitor for any changes. INGA LAW DPM CM:RONNI 1202 1229 INGA LAW DPM 12/09/17 1228 interface
--- NOTE | ~2017-12-04 | PR ---
[place], [place] PROGRESS NOTE NAME: FRANCESCO BEY UNIT #: [id number] ROOM: 419 DOCTOR: INGA LAW DPM BIRTHDATE: [birth year] DOS: 12/10/2017 SUBJECTIVE: The patient is seen for followup of chronic changes to the right foot postop and ulceration to the left heel. OBJECTIVE: The second and third right toes are necrotic and dry in nature. No signs of purulent drainage or foul odor. No signs of acute abscess. The fourth toe is unchanged since previous exam. It is dusky still at this time. There is also dusky appearance to the right hallux to the level of the MPJ. No signs of acute abscess. The wound of the plantar foot reveals no signs of purulent drainage or foul odor. Ulceration of the left heel is full thickness. No signs of infection or abscess. ASSESSMENT: Peripheral vascular disease, ulceration to left heel, postop surgery of right foot with gangrenous changes to the second and third right toes, dry in nature. PLAN: Evaluation and management. We will continue local wound care and we will watch for further changes. Again, the patient is not a acute surgical candidate due to his recent MO and current systemic condition and we will continue to monitor for any changes. Discussed the case with Dr. Chang who will see the patient tomorrow. The patient may need a transmetatarsal amputation in the future, but again due to the patient's current systemic condition, we are going to continue to conservatively monitor the changes. INGA LAW DPM CM:PNTRANS 1227 1242 INGA LAW DPM 12/11/17 1241 interface
--- NOTE | ~2017-12-04 | PR ---
[place], [place] PROGRESS NOTE NAME: FRANCESCO BEY UNIT #: [id number] ROOM: 407 DOCTOR: DUYEN CHOI,DONNA Blair BIRTHDATE: [birth year] DOS: 12/07/2017 ADDENDUM After reviewing the chart, labs and microbiology, I agree with the above plans as described. We will follow the patient up clinically and adjust accordingly. DONNA GELLER MD CM:PNTRANS 0710 0848 DONNA GELLER MD 12/09/17 0928 interface
--- NOTE | ~2017-12-04 | PR ---
[place], [place] PROGRESS NOTE NAME: FRANCESCO BEY [facility] #: [id number] UNIT #: [id number] ROOM: 407 DOCTOR: KARL NICHOLAS,FEBRUARY BIRTHDATE: [birth year] DOS: 12/07/2017 SUBJECTIVE: The patient is being followed by Infectious Disease for right foot osteomyelitis. He has been receiving IV antibiotics at [facility]. His food selector is Dr. Hercules. He was in [facility] mid November. He had further surgery done on the right foot on November 26. I reviewed the [place] chart. He had positive bone cultures with debridement of the right foot, which grew pansensitive pseudomonas. He had pathology that showed acute and chronic osteomyelitis from that surgery. He had already been receiving daptomycin for osteomyelitis of the right foot. He had MRSA and mixed tu. Previously around November 13, he was seen by Dr. Neri and Dr. Geller at that point in time. He also had prior cultures from October 30, which grew Proteus and he was receiving Rocephin while he was in [place], though it does not appear he was receiving it while he was in [place]. He is currently hospitalized for GI bleed and NSTEMI. He is alert, very confused, unable to contribute to history or review of systems. He does not answer any questions appropriately. He has not had any fevers. CURRENT MEDICATIONS: Insulin, Neurontin, Bumex, Risperdal, Tradjenta, Apresoline, Cardizem, Coreg, Cordarone, Ultram, Diflucan, Cymbalta, vancomycin, Bactroban, Protonix. LABORATORY DATA: WBCs have improved to 8.5, platelets 167. BUN 23, creatinine 1.92. He did suffer acute kidney injury previously with vancomycin. Blood cultures remain sterile. Urine culture with heavy yeast. His MRSA screen of his nares was negative. His C. diff was negative. Wound cultures from the foot are negative currently. PHYSICAL EXAMINATION: VITAL SIGNS: Temperature 98.4, pulse 43, respirations 16, BP 106/42: GENERAL: Alert, obese 71-year-old male who is very confused, in no acute distress, nontoxic in appearance. HEAD, EYES, EARS, NOSE AND THROAT: Normocephalic. No thrush. NECK: Supple. LUNGS: A few rhonchi, otherwise fairly clear to auscultation. Respirations even and unlabored. HEART: Regular rhythm. No murmur appreciated. ABDOMEN: Soft, nontender, nondistended, positive bowel sounds. EXTREMITIES: Mild bilateral lower extremity edema. Right foot dressing is dry and intact. SKIN: Warm, dry, free of rashes. He has PICC in the right upper extremity. Dressing dry and intact. No signs of phlebitis. ASSESSMENT: Right foot osteomyelitis, acute and chronic based on his most recent pathology with cultures have grown Proteus, pseudomonas and methicillin-resistant Staphylococcus aureus. PLAN: At this point, we will continue the daptomycin. Again, he did suffer acute kidney injury from vancomycin. We need to add cefepime to cover the pseudomonas as well as continue to cover the Proteus. I reviewed the [place], [place] PROGRESS NOTE NAME: FRANCESCO BEY UNIT #: [id number] ROOM: 407 DOCTOR: KARL NICHOLAS,FEBRUARY BIRTHDATE: [birth year] [place] chart as well as the old [facility] chart. Case discussed with Dr. Donna Geller. ADDENDUM The patient was placed on vancomycin when he was admitted to [facility] as they do not carry daptomycin. I have contacted the pharmacist. They still have no daptomycin in house. He suffered an acute kidney injury in November with vancomycin and still has significant renal insufficiency. We need to stop the vancomycin. We will dose him with Teflaro and instead use Levaquin for now for the osteomyelitis. It would be preferable upon discharge to be able to change him over to daptomycin instead of the Teflaro. Both the pseudomonas that was tested here on 11/19/2017 as well as the prior pseudomonas that was tested 11/26/2017 at [place] from the bone culture are both sensitive to Levaquin as is the Proteus that originally grew at the end of October. Chart reviewed extensively and discussed with the clinical pharmacist as well as Dr. Donna Geller. So again, we will change him over to Teflaro and Levaquin, both of which are renally dosed and stop the vancomycin, stop the Diflucan as well considering both it and Levaquin can cause QT interval prolongation and I see no necessity for his urine is clear. He did have candiduria. This is likely colonization of his catheter. GREG BARAJAS CNP DONNA GELLER MD CM:PNJEFF [id number] GREG BARAJAS CNP 12/09/17 0931 interface
--- NOTE | ~2017-12-04 | CON ---
[place], [place] REPORT OF CON[facility]ATION [id number] UNIT #: [id number] ROOM: [facility] DOCTOR: VOLODYMYR SINGH,SUNIL BIRTHDATE: [birth year] DOS: 12/05/2017 SUBJECTIVE: This 71-year-old white male is seen as consult for evaluation of both feet. The patient had surgery 9 days ago on his right foot and is currently in a bivalve cast. He also has a left heel ulcer. The patient came in with an AR, was placed on heparin and subsequently had a GI bleed. The patient is unresponsive at this time to questions. PAST MEDICAL HISTORY: Positive for AFib, recent AR, BPH, CHF, chronic diabetic foot ulcer, diabetic neuropathy, gastroesophageal reflux disease, history of CVA, hypertension, hypothyroidism, obesity, diabetes mellitus, vitamin D deficiency. ALLERGIES: PENICILLIN and SIMVASTATIN. CURRENT MEDICATIONS: Diflucan, Cymbalta, vancomycin, Protonix, morphine, Cherry, aspirin, insulin. PHYSICAL EXAMINATION: On lower extremity physical examination, the bivalve cast was removed from the right lower extremity. Pedal pulses are barely palpable in the right lower extremity. There were K-wires noted in the second, third and fourth digits. The second and third toe have some mild duskiness noted plantarly. The right fourth toe has minimal duskiness noted. There is no necrotic tissue at this time. No malodor, no purulent drainage. There is a wound at the lateral base of the right great toe that tracks about 4 cm and surgical incisions about 7.5 cm in length. There is a wound about 1 cm in width plantarly. No dorsal erythema, no localized edema, no signs of abscess or fluctuance. K-wires are in place with no drainage from the sinus tracts. He has a wound on the medial side of his right lower calf that is well coapted and healing without complication. Left heel has an ulceration measuring less than a centimeter that is full thickness, very clean and granular with no signs of infection. ASSESSMENT: Status post surgery, right foot with diabetic foot ulcer, mild duskiness to the second and third digit. Left heel ulcer, diabetes mellitus, diabetic neuropathy. PLAN: Packing and dressing is changed on the right foot. We will do daily dressing changes, changing the packing and doing dry dressing to the areas. Daily dressing changes to the left heel with Bactroban and a dressing and we will continue to monitor the foot. Right now, they are dealing with his AR and GI bleed, so we will continue conservative management of the right foot, monitor the toes closely, possibly remove with K wires if warranted. Thanks for the opportunity to take part in the care of this patient. [place], [place] REPORT OF CONSULTATION NAME: FRANCESCO BEY UNIT #: [id number] ROOM: [facility] DOCTOR: SUNIL HELM DPM BIRTHDATE: [birth year] SUNIL HELM DPM CM:CONSTR:REPORT OF CONSULTATION 1152 12/05/17 1444 interface
[~2017-12-04 12:27] MED LIST changes: +BUMETANIDE0.5 MG PO; +CARVEDILOL6.25 MG PO; +CUBICIN500 MG IV; +CYMBALTA60 MG PO; +FEROSUL325 MG PO; +FLORASTOR250 MG PO; +FLUCONAZOLE100 MG PO; +HUMALOG100 UNIT/2 SC; +Hydralazine Hyd25 MG PO; +LEVAQUIN750 M1 PO
[2017-12-04 12:59] LABS: BASO % 0.5 % (0.0-1.0); EOS # 0.1 10*3/uL (0.0-0.4); EOS % 1.8 % (1.0-4.0); HEMATOCRIT 35.1 % (42.0-52.0); HEMOGLOBIN 10.8 g/dl (14.0-18.0); LYMPH # 0.7 10*3/uL (1.3-4.4); LYMPH % 18.9 % (27.0-41.0); MEAN CORPUSCULAR HGB 26.2 pg (27.0-31.0); MEAN CORPUSCULAR HGB CONC 30.8 g/dl (33.0-37.0); MEAN PLATELET VOLUME 10.2 fl (9.6-12.3); MONO # 0.2 10*3/uL (0.1-1.0); MONO % 5.1 % (3.0-9.0); NEUT # 2.8 10*3/uL (2.3-7.9); NEUT % 72.2 % (47.0-73.0); PLATELET COUNT AUTOMATED 271 10*3/uL (130-400); RED BLOOD COUNT 4.13 10*6/uL (4.50-5.90); RED CELL DISTRI WIDTH 20.1 % (0-14.5); WHITE BLOOD COUNT 3.9 10*3/uL (4.8-10.8)
[2017-12-04 13:01] LABS: BILIRUBIN NEGATIVE (NEGATIVE); BLOOD 2+ (NEGATIVE); CLARITY SL CLOUDY (CLEAR); COLOR YELLOW (YELLOW); GLUCOSE NEGATIVE (NEGATIVE); KETONE TRACE (NEGATIVE); NITRITE NEGATIVE (NEGATIVE); SPECIFIC GRAVITY 1.015 (1.005-1.030); UROBILINOGEN 0.2 E.U./dl (0.2-1.0)
[2017-12-04 13:08] LABS: ACT PARTIAL THROMBO TIME 27.8 SECONDS (20.8-31.5); INTERNATIONAL NORM RATIO 1.4 (2.0-3.5)
[2017-12-04 13:15] LABS: LEUKO ESTERASE TRACE (NEGATIVE)
[2017-12-04 13:16] LABS: ALBUMIN 2.8 gm/dl (3.1-4.5); CREATININE 1.56 mg/dL (0.70-1.30); POTASSIUM 3.5 mmol/L (3.5-5.1); TOTAL PROTEIN 6.4 gm/dL (6.4-8.2)
[2017-12-04 13:19] LABS: BACTERIA 2+; RBC 21-30 rbc/hpf (0-2); TROPONIN I 1.48 ng/ml (<0.045); WBC 21-30 wbc/hpf (0-5)
[2017-12-04 13:20] LABS: FINE GRANULAR CAST 20-30; YEAST 3+
[2017-12-04 16:18] LABS: HEMATOCRIT 34.4 % (42.0-52.0); HEMOGLOBIN 10.6 g/dl (14.0-18.0); MEAN CELL VOLUME 85.1 fl (80.0-94.0); MEAN CORPUSCULAR HGB 26.2 pg (27.0-31.0); MEAN CORPUSCULAR HGB CONC 30.8 g/dl (33.0-37.0); NUCLEATED RED BLOOD CELL 0.2 % (0.0-0.0); PLATELET COUNT AUTOMATED 250 10*3/uL (130-400); RED BLOOD COUNT 4.04 10*6/uL (4.50-5.90); RED CELL DISTRI WIDTH 19.9 % (0-14.5); WHITE BLOOD COUNT 12.6 10*3/uL (4.8-10.8)
[2017-12-04 16:44] LABS: PLATELET SUFFICIENCY NORMAL (NORMAL); TOTAL CELLS COUNTED 100 #CELLS
[2017-12-04 16:47] LABS: BASOPHILS 1 % (0-1)
[2017-12-04 16:48] LABS: BURR CELLS FEW; POLYCHROMASIA SLIGHT
[2017-12-04 16:49] LABS: INTERNATIONAL NORM RATIO 1.8 (2.0-3.5)
[2017-12-04] MEDS ORDERED: RISPERDAL0.5 MG PO (17:11)
[2017-12-05] VITALS (71 sets, daily range): BP systolic 100–179; BP diastolic 13–75
[2017-12-05 00:30] LABS: HEMATOCRIT 32.4 % (42.0-52.0); HEMOGLOBIN 10.2 g/dl (14.0-18.0); MEAN CELL VOLUME 85.3 fl (80.0-94.0); MEAN CORPUSCULAR HGB 26.8 pg (27.0-31.0); MEAN CORPUSCULAR HGB CONC 31.5 g/dl (33.0-37.0); MEAN PLATELET VOLUME 10.8 fl (9.6-12.3); PLATELET COUNT AUTOMATED 255 10*3/uL (130-400); WHITE BLOOD COUNT 20.7 10*3/uL (4.8-10.8)
[2017-12-05 00:51] LABS: MICROCYTOSIS SLIGHT; PLATELET SUFFICIENCY NORMAL (NORMAL); TOTAL CELLS COUNTED 100 #CELLS
[2017-12-05 06:16] LABS: ALBUMIN 2.4 gm/dl (3.1-4.5); CREATININE 2.15 mg/dL (0.70-1.30); PHOSPHOROUS 3.7 mg/dL (2.5-4.9); POTASSIUM 3.7 mmol/L (3.5-5.1); TOTAL PROTEIN 5.5 gm/dL (6.4-8.2)
[2017-12-05 06:20] LABS: BASO % 0.2 % (0.0-1.0); EOS % 0.2 % (1.0-4.0); HEMATOCRIT 29.8 % (42.0-52.0); HEMOGLOBIN 9.2 g/dl (14.0-18.0); LYMPH # 0.8 10*3/uL (1.3-4.4); LYMPH % 4.9 % (27.0-41.0); MEAN CELL VOLUME 86.1 fl (80.0-94.0); MEAN CORPUSCULAR HGB 26.6 pg (27.0-31.0); MEAN CORPUSCULAR HGB CONC 30.9 g/dl (33.0-37.0); MEAN PLATELET VOLUME 10.8 fl (9.6-12.3); MONO # 1.1 10*3/uL (0.1-1.0); MONO % 6.8 % (3.0-9.0); NEUT # 14.3 10*3/uL (2.3-7.9); NEUT % 87.2 % (47.0-73.0); PLATELET COUNT AUTOMATED 233 10*3/uL (130-400); RED BLOOD COUNT 3.46 10*6/uL (4.50-5.90); RED CELL DISTRI WIDTH 19.9 % (0-14.5); WHITE BLOOD COUNT 16.4 10*3/uL (4.8-10.8)
[2017-12-05 06:24] LABS: THYROID STIM HORMONE (HS) 1.33 uIU/ml (0.358-4.75)
[2017-12-05 12:18] LABS: BASO % 0.2 % (0.0-1.0); EOS # 0.1 10*3/uL (0.0-0.4); EOS % 0.7 % (1.0-4.0); HEMATOCRIT 28.6 % (42.0-52.0); HEMOGLOBIN 8.8 g/dl (14.0-18.0); LYMPH # 0.7 10*3/uL (1.3-4.4); MEAN CELL VOLUME 86.1 fl (80.0-94.0); MEAN CORPUSCULAR HGB 26.5 pg (27.0-31.0); MEAN CORPUSCULAR HGB CONC 30.8 g/dl (33.0-37.0); MEAN PLATELET VOLUME 10.2 fl (9.6-12.3); MONO # 0.8 10*3/uL (0.1-1.0); MONO % 6.2 % (3.0-9.0); NEUT # 11.6 10*3/uL (2.3-7.9); NEUT % 87.2 % (47.0-73.0); PLATELET COUNT AUTOMATED 220 10*3/uL (130-400); RED BLOOD COUNT 3.32 10*6/uL (4.50-5.90); RED CELL DISTRI WIDTH 20.1 % (0-14.5); WHITE BLOOD COUNT 13.3 10*3/uL (4.8-10.8)
[2017-12-06] VITALS (7 sets, daily range): BP systolic 108–187; BP diastolic 46–71
[2017-12-06 05:59] LABS: BASO % 0.2 % (0.0-1.0); EOS # 0.1 10*3/uL (0.0-0.4); EOS % 1.1 % (1.0-4.0); HEMATOCRIT 28.1 % (42.0-52.0); HEMOGLOBIN 8.8 g/dl (14.0-18.0); LYMPH # 0.6 10*3/uL (1.3-4.4); LYMPH % 5.7 % (27.0-41.0); MEAN CELL VOLUME 86.7 fl (80.0-94.0); MEAN CORPUSCULAR HGB 27.2 pg (27.0-31.0); MEAN CORPUSCULAR HGB CONC 31.3 g/dl (33.0-37.0); MEAN PLATELET VOLUME 10.3 fl (9.6-12.3); MONO # 0.6 10*3/uL (0.1-1.0); MONO % 6.1 % (3.0-9.0); NEUT # 8.7 10*3/uL (2.3-7.9); NEUT % 86.3 % (47.0-73.0); PLATELET COUNT AUTOMATED 182 10*3/uL (130-400); RED BLOOD COUNT 3.24 10*6/uL (4.50-5.90); RED CELL DISTRI WIDTH 19.1 % (0-14.5)
[2017-12-06 06:01] LABS: ALBUMIN 2.3 gm/dl (3.1-4.5); CREATININE 2.26 mg/dL (0.70-1.30); PHOSPHOROUS 3.2 mg/dL (2.5-4.9); POTASSIUM 3.8 mmol/L (3.5-5.1)
[2017-12-07] VITALS (7 sets, daily range): BP systolic 106–180; BP diastolic 40–70
[2017-12-07 05:33] LABS: BASO % 0.2 % (0.0-1.0); EOS # 0.2 10*3/uL (0.0-0.4); EOS % 1.8 % (1.0-4.0); HEMATOCRIT 27.4 % (42.0-52.0); HEMOGLOBIN 8.6 g/dl (14.0-18.0); LYMPH # 0.5 10*3/uL (1.3-4.4); LYMPH % 5.6 % (27.0-41.0); MEAN CELL VOLUME 87.3 fl (80.0-94.0); MEAN CORPUSCULAR HGB 27.4 pg (27.0-31.0); MEAN CORPUSCULAR HGB CONC 31.4 g/dl (33.0-37.0); MEAN PLATELET VOLUME 10.7 fl (9.6-12.3); MONO # 0.6 10*3/uL (0.1-1.0); MONO % 7.2 % (3.0-9.0); NEUT # 7.2 10*3/uL (2.3-7.9); NEUT % 84.5 % (47.0-73.0); PLATELET COUNT AUTOMATED 167 10*3/uL (130-400); RED BLOOD COUNT 3.14 10*6/uL (4.50-5.90); RED CELL DISTRI WIDTH 19.4 % (0-14.5); WHITE BLOOD COUNT 8.5 10*3/uL (4.8-10.8)
[2017-12-07 05:45] LABS: CREATININE 1.92 mg/dL (0.70-1.30); POTASSIUM 3.7 mmol/L (3.5-5.1)
[2017-12-08] VITALS (12 sets, daily range): BP systolic 145–183; BP diastolic 50–86
[2017-12-08 07:13] LABS: HEMATOCRIT 27.3 % (42.0-52.0); HEMOGLOBIN 8.4 g/dl (14.0-18.0)
[2017-12-08 07:50] LABS: CREATININE 2.93 mg/dL (0.70-1.30); POTASSIUM 3.7 mmol/L (3.5-5.1)
[2017-12-09] VITALS (7 sets, daily range): BP systolic 126–180; BP diastolic 56–89
[2017-12-09 06:05] LABS: BASO % 0.3 % (0.0-1.0); EOS # 0.2 10*3/uL (0.0-0.4); EOS % 2.5 % (1.0-4.0); HEMOGLOBIN 9.7 g/dl (14.0-18.0); LYMPH # 0.5 10*3/uL (1.3-4.4); LYMPH % 7.8 % (27.0-41.0); MEAN CELL VOLUME 86.5 fl (80.0-94.0); MEAN CORPUSCULAR HGB CONC 32.3 g/dl (33.0-37.0); MONO # 0.7 10*3/uL (0.1-1.0); MONO % 11.1 % (3.0-9.0); NEUT # 4.6 10*3/uL (2.3-7.9); NEUT % 76.5 % (47.0-73.0); PLATELET COUNT AUTOMATED 160 10*3/uL (130-400); RED BLOOD COUNT 3.47 10*6/uL (4.50-5.90); RED CELL DISTRI WIDTH 18.8 % (0-14.5)
[2017-12-09 06:18] LABS: ALBUMIN 2.2 gm/dl (3.1-4.5); CREATININE 3.84 mg/dL (0.70-1.30); PHOSPHOROUS 4.4 mg/dL (2.5-4.9); TOTAL PROTEIN 5.3 gm/dL (6.4-8.2)
[2017-12-09 11:29] LABS: URINE CHLORIDE, RANDOM 101 mmol/L; URINE CREATININE RANDOM < 13.00 mg/dL
[2017-12-09 13:42] LABS: BILIRUBIN NEGATIVE (NEGATIVE); BLOOD 1+ (NEGATIVE); CLARITY CLEAR (CLEAR); COLOR YELLOW (YELLOW); GLUCOSE NEGATIVE (NEGATIVE); KETONE NEGATIVE (NEGATIVE); LEUKO ESTERASE 1+ (NEGATIVE); NITRITE NEGATIVE (NEGATIVE); UROBILINOGEN 0.2 E.U./dl (0.2-1.0)
[2017-12-09 13:55] LABS: BACTERIA 1+; RBC 21-30 rbc/hpf (0-2); WBC 41-50 wbc/hpf (0-5); YEAST 1+
[2017-12-10] VITALS: BP 163/81
[2017-12-10 04:00] VITALS: BP 155/75
[2017-12-10 06:20] LABS: HEMATOCRIT 30.3 % (42.0-52.0); HEMOGLOBIN 9.7 g/dl (14.0-18.0)
[2017-12-10 06:29] LABS: ALBUMIN 2.2 gm/dl (3.1-4.5); CREATININE 4.46 mg/dL (0.70-1.30); PHOSPHOROUS 4.8 mg/dL (2.5-4.9); POTASSIUM 3.8 mmol/L (3.5-5.1)
[2017-12-10 08:00] VITALS: BP 167/59
[2017-12-10 16:00] VITALS: BP 171/59
[2017-12-10 18:39] VITALS: BP 154/78
[2017-12-10 20:00] VITALS: BP 159/52
[2017-12-11] VITALS: BP 150/46
[2017-12-11 07:28] LABS: BASO % 0.5 % (0.0-1.0); EOS # 0.2 10*3/uL (0.0-0.4); EOS % 2.9 % (1.0-4.0); HEMATOCRIT 31.9 % (42.0-52.0); HEMOGLOBIN 10.1 g/dl (14.0-18.0); LYMPH # 0.6 10*3/uL (1.3-4.4); LYMPH % 9.5 % (27.0-41.0); MEAN CELL VOLUME 86.9 fl (80.0-94.0); MEAN CORPUSCULAR HGB 27.5 pg (27.0-31.0); MEAN CORPUSCULAR HGB CONC 31.7 g/dl (33.0-37.0); MEAN PLATELET VOLUME 10.4 fl (9.6-12.3); MONO # 0.5 10*3/uL (0.1-1.0); MONO % 8.8 % (3.0-9.0); NEUT # 4.5 10*3/uL (2.3-7.9); NEUT % 75.6 % (47.0-73.0); PLATELET COUNT AUTOMATED 173 10*3/uL (130-400); RED BLOOD COUNT 3.67 10*6/uL (4.50-5.90); RED CELL DISTRI WIDTH 18.8 % (0-14.5); WHITE BLOOD COUNT 5.9 10*3/uL (4.8-10.8)
[2017-12-11 08:00] VITALS: BP 164/62; BP 182/62
[2017-12-11 08:15] LABS: ALBUMIN 2.4 gm/dl (3.1-4.5); CREATININE 4.96 mg/dL (0.70-1.30); PHOSPHOROUS 5.7 mg/dL (2.5-4.9); POTASSIUM 4.1 mmol/L (3.5-5.1)
[2017-12-11 12:00] VITALS: BP 151/55
[2017-12-11 16:00] VITALS: BP 164/62
[2017-12-11 20:00] VITALS: BP 157/51
[2017-12-12] VITALS: BP 161/60
[2017-12-12 07:23] LABS: HEMATOCRIT 29.2 % (42.0-52.0); HEMOGLOBIN 9.1 g/dl (14.0-18.0); MEAN CELL VOLUME 87.2 fl (80.0-94.0); MEAN CORPUSCULAR HGB 27.2 pg (27.0-31.0); MEAN CORPUSCULAR HGB CONC 31.2 g/dl (33.0-37.0); MEAN PLATELET VOLUME 10.9 fl (9.6-12.3); PLATELET COUNT AUTOMATED 171 10*3/uL (130-400); RED BLOOD COUNT 3.35 10*6/uL (4.50-5.90); RED CELL DISTRI WIDTH 19.1 % (0-14.5)
[2017-12-12 07:45] LABS: ALBUMIN 2.3 gm/dl (3.1-4.5); CREATININE 5.41 mg/dL (0.70-1.30); PHOSPHOROUS 6.2 mg/dL (2.5-4.9); POTASSIUM 4.1 mmol/L (3.5-5.1)
[2017-12-12 08:00] VITALS: BP 124/60
[2017-12-12 08:24] LABS: PLATELET SUFFICIENCY NORMAL (NORMAL); POLYCHROMASIA SLIGHT; TOTAL CELLS COUNTED 100 #CELLS
[2017-12-12 12:00] VITALS: BP 132/54
[2017-12-12 16:00] VITALS: BP 128/44
[2017-12-12] MEDS ORDERED: Insulin Lispro, Reco SC (16:28)
[2017-12-12] MEDS ORDERED: REMEDY CALAZIME4 GM T (16:28)
[2017-12-12] MEDS ORDERED: ATIVAN1 MG PO (16:31)
[2017-12-12] MEDS ORDERED: PERCOCET 7.5-31 EACH PO (16:31)
== END 2017-12-12 20:00 | disposition hospice, home (50) | DRG 871 ==
LOC: ED 12:27 → ICCU 13:54 → EDHOLD 13:54 → ICCU 14:03 → 4E 12-07 13:40
PROVIDERS: Emergency Medicine; Family Medicine; Internal Medicine; Internal Medicine Cardiovascular Disease
PROC: 30233N1 Transfusion of Nonautologous Red Blood Cells into Peripheral Vein, Percutaneous Approach (ICD-10-PCS; principal; 2017-12-05)
DX: A41.9 Sepsis, unspecified organism (principal); I21.4 Non-ST elevation (NSTEMI) myocardial infarction; N17.0 Acute kidney failure with tubular necrosis; J96.01 Acute respiratory failure with hypoxia; R65.21 Severe sepsis with septic shock; E44.0 Moderate protein-calorie malnutrition; K27.4 Chronic or unspecified peptic ulcer, site unspecified, with hemorrhage; I96 Gangrene, not elsewhere classified; G93.41 Metabolic encephalopathy; K57.31 Diverticulosis of large intestine without perforation or abscess with bleeding; E87.2 Acidosis; I50.42 Chronic combined systolic (congestive) and diastolic (congestive) heart failure; L97.429 Non-pressure chronic ulcer of left heel and midfoot with unspecified severity; D62 Acute posthemorrhagic anemia; I13.0 Hypertensive heart and chronic kidney disease with heart failure and stage 1 through stage 4 chronic kidney disease, or unspecified chronic kidney disease; E11.52 Type 2 diabetes mellitus with diabetic peripheral angiopathy with gangrene; A06.0 Acute amebic dysentery; M86.671 Other chronic osteomyelitis, right ankle and foot; M86.171 Other acute osteomyelitis, right ankle and foot; I95.9 Hypotension, unspecified; E11.22 Type 2 diabetes mellitus with diabetic chronic kidney disease; E11.40 Type 2 diabetes mellitus with diabetic neuropathy, unspecified; E11.621 Type 2 diabetes mellitus with foot ulcer; E11.65 Type 2 diabetes mellitus with hyperglycemia; I48.2 Chronic atrial fibrillation; Z66 Do not resuscitate; Z51.5 Encounter for palliative care; E83.41 Hypermagnesemia; K21.9 Gastro-esophageal reflux disease without esophagitis; N40.0 Benign prostatic hyperplasia without lower urinary tract symptoms; E03.9 Hypothyroidism, unspecified; T45.516A Underdosing of anticoagulants, initial encounter; E66.01 Morbid (severe) obesity due to excess calories; E11.69 Type 2 diabetes mellitus with other specified complication; S31.104A Unspecified open wound of abdominal wall, left lower quadrant without penetration into peritoneal cavity, initial encounter; X58.XXXA Exposure to other specified factors, initial encounter; B37.9 Candidiasis, unspecified; N18.9 Chronic kidney disease, unspecified; Z86.14 Personal history of Methicillin resistant Staphylococcus aureus infection; Z88.0 Allergy status to penicillin; Z88.8 Allergy status to other drugs, medicaments and biological substances; Z79.4 Long term (current) use of insulin; Y93.89 Activity, other specified; Y92.89 Other specified places as the place of occurrence of the external cause; Y99.8 Other external cause status; Z86.73 Personal history of transient ischemic attack (TIA), and cerebral infarction without residual deficits; Z79.82 Long term (current) use of aspirin; Z79.2 Long term (current) use of antibiotics; Z79.899 Other long term (current) drug therapy; Z82.3 Family history of stroke; Z82.0 Family history of epilepsy and other diseases of the nervous system; Z79.1 Long term (current) use of non-steroidal anti-inflammatories (NSAID); Z68.38 Body mass index [BMI] 38.0-38.9, adult